=== PATIENT | female | born 1990 | race Caucasian/White ===

== ENCOUNTER → 2022-03-04 | Outpatient (CLI) | payer OTHER, BC, SELFPAY ==
[2022-03-04 14:11] LABS: hCG Titer Quant., Serum 78 mIU/mL (1-3)
== END | disposition home or self-care (01) ==
LOC: LAB 12:26
PROVIDERS: Visit Provider Obstetrics & Gynecology
DX: O36.80X0 Pregnancy with inconclusive fetal viability, not applicable or unspecified (principal)
CPT/HCPCS: 36415; 84702; 86850; 86900; 86901

== ENCOUNTER → 2022-03-06 | Outpatient (CLI) | payer OTHER, BC, SELFPAY ==
[2022-03-06 10:18] LABS: hCG Titer Quant., Serum 217 mIU/mL (1-3)
== END | disposition home or self-care (01) ==
LOC: LAB 09:12
PROVIDERS: Visit Provider Obstetrics & Gynecology
DX: O36.80X0 Pregnancy with inconclusive fetal viability, not applicable or unspecified (principal)
CPT/HCPCS: 36415; 84702

== ENCOUNTER → 2022-04-08 | Outpatient (CLI) | payer OTHER, BC, SELFPAY ==
[2022-04-07 15:16] LABS: Protein, Urine (Random) 14.8 mg/dL (<11.9); Protein:Creat Ratio 80 mg/g CRE (0-200)
[2022-04-07 15:19] LABS: Amphetamine Urine VISTA NEGATIVE (<1000 ng/mL); Barbiturate Urine VISTA NEGATIVE (< 200 ng/mL); Benzodiazepine Urine VISTA NEGATIVE (< 200 ng/mL); Cocaine Urine VISTA NEGATIVE (< 300 ng/mL); Ecstacy Urine VISTA NEGATIVE (< 500 ng/mL); Methadone Urine VISTA NEGATIVE (< 300 ng/mL); PCP Urine VISTA NEGATIVE (< 25 ng/mL); THC Urine VISTA NEGATIVE (< 50 ng/mL); Vista UDS pH Range 5
[2022-04-12 10:16] LABS: Chlamydia By Nucleic Acid AMP Negative (Negative)
[2022-04-12 10:32] LABS: Gonococcus By Nucleic Acid AMP Negative (Negative)
[2022-04-12 16:33] LABS: HPV APTIMA, High Risk Negative (Negative)
== END | disposition home or self-care (01) ==
LOC: LABSPEC 10:16
PROVIDERS: Visit Provider Obstetrics & Gynecology
DX: Z34.90 Encounter for supervision of normal pregnancy, unspecified, unspecified trimester (principal)
CPT/HCPCS: 80307; 82570; 84156; 87086; 87088; 87491; 87591; 87624; 88175; G0145

== ENCOUNTER → 2022-06-07 | Outpatient (CLI) | payer OTHER, BC, SELFPAY ==
[2022-06-07 17:40] LABS: Absolute Lymphocyte Count 1.93 X10^3/uL (0.83-4.51); Absolute Neutrophil Count 7.6 X10^3/uL (2.0-7.7); Basophil# 0.03 X10^3/uL; Basophil% 0.3 % (0-1); Eosinophil# 0.07 X10^3/uL; Eosinophils% 0.7 % (0-5); Hematocrit 36.4 % (37-47); Hemoglobin 12.6 g/dL (12.0-15.0); Lymphocyte # 1.93 X10^3/ul (0.83-4.51); Lymphocyte % 18.5 % (19-41); Mean Corp Hgb Conc 34.6 g/dL (32-36); Mean Corpuscular Hgb 30.6 pg (27.0-32.0); Mean Corpuscular Volume 88.3 fL (81-99); Monocyte# 0.74 X10^3/uL; Monocyte% 7.1 % (0-10); NRBC Flagged by Analyzer 0 % (0-5); Neutrophil # 7.64 X10^3/uL (2.7-7.7); Platelet Count 240 K/mm3 (150-450); RBC Distribution Width CV 13.4 % (11.6-14.6); RBC Distribution Width SD 43.7 fl (35.1-43.9); Red Blood Count 4.12 M/mm3 (4.2-5.4); White Blood Count 10.5 K/mm3 (4.4-11.0)
[2022-06-07 17:45] LABS: Protein, Urine (Random) < 6.0 mg/dL (<11.9)
[2022-06-07 18:33] LABS: ALB/GLOB Ratio 0.8 RATIO (0.9-2.4); AST(SGOT) 14 U/L (15-37); Alanine Aminotransfer ALT/SGPT 31 U/L (13-56); Albumin, Serum 3.2 g/dL (3.2-5.0); Alkaline Phosphatase 38 U/L (45-117); Anion Gap 10 (5-15); BUN 7 mg/dL (7-18); BUN/Creat Ratio 14.4 RATIO (10-20); Calcium,Total 9.2 mg/dL (8.5-10.1); Chloride 102 mmol/L (98-107); Creatinine, Serum 0.49 mg/dL (0.55-1.02); EST Glomerular Filtration Rate 159 mL/min (>60); Est Glom Filt Rate - Afr Amer 192 mL/min (>60); Glucose 79 mg/dL (74-106); Potassium 3.6 mmol/L (3.5-5.1); Protein, Total 7.2 g/dL (6.4-8.2); Sodium Level 137 mmol/L (136-145)
== END | disposition home or self-care (01) ==
LOC: LAB 17:04
PROVIDERS: Referring Provider Obstetrics & Gynecology; Visit Provider Obstetrics & Gynecology
DX: R10.11 Right upper quadrant pain (principal); R51.9 Headache, unspecified
CPT/HCPCS: 80053; 82570; 84156; 85025

== ENCOUNTER → 2022-08-19 | Outpatient (CLI) | payer OTHER, BC, SELFPAY ==
[2022-08-19 15:51] LABS: Absolute Neutrophil Count 8.5 X10^3/uL (2.0-7.7); Basophil# 0.03 X10^3/uL; Basophil% 0.3 % (0-1); Eosinophil# 0.04 X10^3/uL; Eosinophils% 0.4 % (0-5); Hematocrit 35.5 % (37-47); Hemoglobin 12.2 g/dL (12.0-15.0); Lymphocyte % 14.1 % (19-41); Mean Corp Hgb Conc 34.4 g/dL (32-36); Mean Corpuscular Hgb 30.4 pg (27.0-32.0); Mean Corpuscular Volume 88.5 fL (81-99); Mean Platelet Vol. 10.9 fl (6.2-12.0); Monocyte# 0.59 X10^3/uL; Monocyte% 5.5 % (0-10); NRBC Flagged by Analyzer 0 % (0-5); Neutrophil # 8.45 X10^3/uL (2.7-7.7); Neutrophil % 79.1 % (47-70); Platelet Count 237 K/mm3 (150-450); RBC Distribution Width CV 14.3 % (11.6-14.6); RBC Distribution Width SD 45.9 fl (35.1-43.9); Red Blood Count 4.01 M/mm3 (4.2-5.4); White Blood Count 10.7 K/mm3 (4.4-11.0)
[2022-08-19 16:43] LABS: Glucose Challenge Gest 1H 50g 132 mg/dL (70-140)
[2022-08-19 16:48] LABS: ALB/GLOB Ratio 0.8 RATIO (0.9-2.4); AST(SGOT) 11 U/L (15-37); Alanine Aminotransfer ALT/SGPT 20 U/L (13-56); Albumin, Serum 3.1 g/dL (3.2-5.0); Alkaline Phosphatase 46 U/L (45-117); Anion Gap 7 (5-15); BUN 8 mg/dL (7-18); BUN/Creat Ratio 16.9 RATIO (10-20); Chloride 103 mmol/L (98-107); Creatinine, Serum 0.47 mg/dL (0.55-1.02); EST Glomerular Filtration Rate 163 mL/min (>60); Est Glom Filt Rate - Afr Amer 197 mL/min (>60); Globulin 3.9 g/dL (2.2-4.2); Glucose 131 mg/dL (74-106); Potassium 3.4 mmol/L (3.5-5.1); Sodium Level 136 mmol/L (136-145)
[2022-08-19 17:03] LABS: HIV - WCH Non-Reactive (Nonreactive); Hepatitis B Surface Antigen Non-Reactive (Nonreactive); Hepatitis C Antibody Non-Reactive (Nonreactive); Rubella IgG Reactive (Nonreactive); Syphilis Antibodies Non-reactive
== END | disposition home or self-care (01) ==
LOC: LAB 15:15
PROVIDERS: Obstetrics & Gynecology; Visit Provider Obstetrics & Gynecology
DX: Z34.90 Encounter for supervision of normal pregnancy, unspecified, unspecified trimester (principal); Z87.59 Personal history of other complications of pregnancy, childbirth and the puerperium
CPT/HCPCS: 36415; 80053; 82950; 85025; 86703; 86762; 86780; 86803; 87340

== ENCOUNTER 2022-10-04 15:05 | Outpatient (CLI) | payer OTHER, BC, SELFPAY ==
[2022-10-04] VITALS (15 sets, daily range): BP systolic 132–171; BP diastolic 73–88; PULSE 80–101; TEMP 35.9–36.3; O2SAT 97–98; BMI 31.4
[2022-10-04 15:52] LABS: Hematocrit 34.7 % (37-47); Hemoglobin 12.1 g/dL (12.0-15.0); Mean Corp Hgb Conc 34.9 g/dL (32-36); Mean Corpuscular Hgb 31.3 pg (27.0-32.0); Mean Corpuscular Volume 89.9 fL (81-99); Mean Platelet Vol. 11.3 fl (6.2-12.0); Platelet Count 196 K/mm3 (150-450); RBC Distribution Width CV 14.2 % (11.6-14.6); RBC Distribution Width SD 46.2 fl (35.1-43.9); Red Blood Count 3.86 M/mm3 (4.2-5.4); White Blood Count 8.5 K/mm3 (4.4-11.0)
[2022-10-04 16:04] LABS: Protein, Urine (Random) 14.6 mg/dL (<11.9); Protein:Creat Ratio 136 mg/g CRE (0-200)
[2022-10-04 16:08] LABS: AST(SGOT) 10 U/L (15-37); Alanine Aminotransfer ALT/SGPT 15 U/L (13-56); Creatinine, Serum 0.45 mg/dL (0.55-1.02); EST Glomerular Filtration Rate 174 mL/min (>60); Est Glom Filt Rate - Afr Amer 211 mL/min (>60); Uric Acid 4.2 mg/dL (2.6-6.0)
--- NOTE | 2022-10-04 17:44 | HP.PCM.OB_ITS ---
HPI - General HPI Narrative JANETH BURGOS, is a 31 y/o @ 34 weeks 5 days who presents to L&D with headaches and elevated blood pressures of 140's-170/80's. PIH labs were collected along with a pro:cr ratio and were negative for pre-eclampsia. Pt states that this happened 10 years ago with her last and she was delivered at term ultimately. She states that she was admitted 3 times during her for high blood pressure but was never given blood pressure medication or magnesium and was not induced early. Maternal Data Information DENNIS Calculator Estimated Delivery Date Method Current WG Current Estimate 11/10/22 LMP (Uncertain) 34w 5d PFSH PFSH Medical History History of gestational hypertension Home Medications prenat.vits,david,[id number] 1 tab PO DAILY 03/23/22 [History Last Taken 10/03/22 21:00] calcium carbonate 200 mg calcium (500 mg) chewable tablet (Tums) 200 mg PO BID 06/28/22 [History Last Taken Unknown] acetaminophen 500 mg tablet 1,000 mg PO Q6H PRN Pain 10/04/22 [History Last Taken 10/04/22 12:00] diphenhydramine HCl 25 mg capsule (Benadryl) 25 mg PO PRN PRN allergies 10/04/22 [History Last Taken 10/03/22 21:00] famotidine 20 mg tablet (Pepcid) 20 mg PO DAILY 10/04/22 [History Last Taken 10/04/22 12:00] Allergy/AdvReac Type Severity Reaction Status Date / Time No Known Allergies Allergy Verified 10/04/22 16:15 Family History Father Diabetes Mother Multiple sclerosis Brother SVT (supraventricular tachycardia) Grandmother Hypertension Grandfather Hypertension Heart disease Social History adopted: No household members: spouse number of children: 2 current occupational status: employed current occupation: [employer] pets and animals: Yes (avoid litter box) pets and animals: cat(s), dog(s) and farm animals Smoking Status: Current every day smoker tobacco type: cigarettes how long ago did patient quit smokin cig per day, decreasing daily quit status: considering quitting alcohol intake: current alcohol intake frequency: a few times a week details: none while substance use type: does not use do you feel safe at home: Yes additional social history: Spouse: Vladimir History 2 Elective abortions Hx Para 1 Spontaneous abortions Hx # Term Pregnancies Ectopic pregnancies Hx # Pregnancies Multiple births # of living children 1 Past Pregnancies Del. Date Name GA/Weeks Outcome Route Bth Weight Infant Gen Labor [facility]est[facility] FOB Unknown 11/16/2011 [facility] live - full term 7# 8oz Female 9 hr epidural [place] Delivery Date: Last Updated by: Erna [place] QUALITY ASSURANCE CLERK, QUALITY ASSURANCE CLERK-C Hyperemesis, Pre E; Visit Details Expected Delivery Route/Plan Labor Preferences- CB/BF classes: [] labor support person: [] labor intervention preferences: [] pain management options preferred: [] cut cord/dad catch: [] : [] PP control planned: [] discussed possible routes of delivery and associated risks: [] special requests: [] Plans Covid status: declined Flu vaccine: decliined Tdap vaccine: declined Rhogam: na LARC form signed: [] movement and labor precautions reviewed. Problem list reviewed and updated with the most current plan of care details and appropriate orders placed. Relevant counseling for the gestational age provided. Continue routine care and follow up unless otherwise noted in visit notes/problem list details OB Flowsheet Initial Weight: Not Recorded Date -?-?-?-?-?-?-?-?-?-?-?-?- EGA Weight BP Urine Prot -?-?-?-?-?-?-?-?-?-?-?-?- Glucose FHR FuHt Pres Dilation -?-?-?-?-?-?-?-?-?-?-?-?- Effaced St Visit Note 04/07/22 -?-?-?-?-?-?-?-?-?-?-?--?- 9w 0d 193 lb 158/90 -?-?-?-?-?-?-?-?-?-?-?-?- 180 -?-?-?-?-?-?-?-?-?-?-?-?- SM- CRL 2.26cm c ons with LMP 05/03/22 -?-?-?-?-?-?-?-?-?-?-?-?- 12w 5d 192 lb 6 oz 133/87 Nega tive -?-?-?-?-?-?-?-?-?-?-?-?- Negative 155 -?-?-?-?-?-?-?-?-?-?-?-?- JV- no complaint s. pt declines genetic testnig. anatomy ultrasound ordered. 06/07/22 -?-?-?-?-?-?-?-?-?-?-?-?- 17w 5d 198 lb 8 oz 120/73 132/68 Negative -?-?-?-?-?-?-?-?-?-?-?-?- Negative 147 -?-?-?-?-?-?-?-?-?-?-?-?- ALBERTO- pt complains of RUQ pain and headaches. She states she is trying to sleep on her left side and take tylenol but the pain is persistent. she has a h/o Pre- e. ordering baseline labs with pro:cr will call with results. 06/28/22 -?-?-?-?-?-?-?-?-?-?-?-?- 20w 5d 203 lb 133/77 Negative -?-?-?-?-?-?-?-?-?-?-?-?- Negative 140 -?-?-?-?-?-?-?-?-?-?-?-?- SM- no vb lof go od fm no reuglar ctx 07/29/22 -?-?-?-?-?-?-?-?-?-?-?-?- 25w 1d 205 lb 8 oz 135/79 Nega tive -?-?-?-?-?-?-?-?-?-?-?-?- Negative 145 -?-?-?-?-?-?-?-?-?-?-?-?- ALBERTO- pt has type and screen in but no other new ob labs. she will do this at the gct visit. 08/19/22 -?-?-?-?-?-?-?-?-?-?-?-?- 28w 1d 203 lb 134/73 Negative -?-?-?-?-?-?-?-?-?-?-?-?- Negative 135 28 -?-?-?-?-?-?-?-?-?-?-?-?- SM- no vb lof go od fm no reuglar ctx 09/09/22 -?-?-?-?-?-?-?-?-?-?-?-?- 31w 1d 207 lb 136/88 Negative -?-?--?-?-?-?-?-?-?-?-?-?- Negative 150 31 -?-?-?-?-?-?-?-?-?-?-?-?- SM- no vb lof go od fm no reuglar ctx 09/28/22 -?-?-?-?-?-?-?-?-?-?-?-?- 33w 6d 210 lb 6 oz 132/84 Nega tive -?-?-?-?-?-?-?-?-?-?-?-?- Negative 154 34 0 -?-?-?-?-?-?-?-?-?-?-?-?- MH-Good FM. Has bad cough. Noted 4 episodes of pink with wiping after void. Exam with normal dc, cervix closed. Larc ROS Constitutional Constitutional: Denies change in weight, fatigue, fever(s), poor appetite or weakness Eyes Eyes: Denies blurry vision, change in vision, seeing flashes or spots in vision ENT HEENT: Denies dizziness, headache(s), loss taste/smell or sore throat Cardiovascular Cardiovascular: Denies chest pain, dizziness, dyspnea, irregular heart rhythm, leg edema, palpitations or rapid heart rate Respiratory/Chest Respiratory/Chest: Denies chest tightness, cough, dyspnea or breast pain Gastrointestinal Gastrointestinal: Denies abdominal pain, anorexia, constipation, cramping, diarrhea, hemorrhoids or weight changes Genitourinary Genitourinary: Denies dysuria, flank pain, genital lesions, genital pain, urinary frequency or urinary urgency Musculoskeletal Musculoskeletal: Denies back pain, difficulty walking, joint pain, limited range of motion, muscle cramps or numbness Integumentary Integumentary: Denies lesions or unusual bruising Neurologic Neurologic: Denies abnormal movements, abnormal speech, dizziness, numbness, seizure-like activity or syncope Psychiatric Psychiatric: Denies anxiety, behavioral changes, change in appetite, change in l ibido, cognitive impairment, confusion, depression, difficulty concentrating, hallucinations or suicidal thoughts Endocrine Endocrinology: Denies excessive sweating, polydipsia or polyuria Hematologic/Lymphatic Hematologic/Lymphatic: Denies easy bleeding, easy bruising or lymphadenopathy Allergic/Immunologic Allergic/Immunologic: Denies itchy eyes, lip swelling, seasonal rhinorrhea, rhinitis, throat swelling, tongue swelling, eczemia, wheezing or asthma Vital Signs Vital Signs Vital Signs: 10/04/22 15:28 10/04/22 15:28 10/04/22 15:28 Temperature Temperature Source Temporal Pulse Rate 81 Blood Pressure 145/79 H BP Systolic 145 BP Diastolic 79 Pulse Ox 10/04/22 15:28 10/04/22 15:28 10/04/22 15:43 Temperature 96.6 F L Temperature Source Pulse Rate Blood Pressure 148/88 H BP Systolic 148 BP Diastolic 88 Pulse Ox 98 10/04/22 15:43 10/04/22 15:58 10/04/22 15:58 Temperature Temperature Source Pulse Rate 91 88 Blood Pressure 151/83 H BP Systolic 151 BP Diastolic 83 Pulse Ox 10/04/22 16:14 10/04/22 16:14 10/04/22 16:28 Temperature Temperature Source Pulse Rate 95 Blood Pressure 167/85 H 144/74 H BP Systolic 167 144 BP Diastolic 85 74 Pulse Ox 10/04/22 16:28 10/04/22 16:44 10/04/22 16:44 Temperature Temperature Source Pulse Rate 85 101 H Blood Pressure 151/82 H BP Systolic 151 BP Diastolic 82 Pulse Ox 10/04/22 16:58 10/04/22 16:58 10/04/22 17:13 Temperature Temperature Source Pulse Rate 87 Blood Pressure 155/77 H 171/83 H BP Systolic 155 171 BP Diastolic 77 83 Pulse Ox 10/04/22 17:13 10/04/22 17:28 10/04/22 17:28 Temperature Temperature Source Pulse Rate 89 98 Blood Pressure 155/80 H BP Systolic 155 BP Diastolic 80 Pulse Ox 10/04/22 17:43 10/04/22 17:43 Temperature Temperature Source Pulse Rate 81 Blood Pressure 165/80 H BP Systolic 165 BP Diastolic 80 Pulse Ox Weight Weight: 207 lb Body Mass Index (BMI) 31.4 Physical Exam Const alert, oriented x3, no apparent distress and healthy appearing General Appearance: cooperative; Negative for anxious HEENT normocephalic Face and Sinus: normal facial exam Eyes EOMs intact bilaterally and no scleral icterus General Eye: normal appearance of both eyes Neck full ROM and supple Lymph Lymphatic: no lymphadenopathy noted Chest Chest: abnormal inspection of the chest Resp normal respiratory effort Effort and Inspection: able to speak in complete sentences Cardio regular rate GI soft to palpation and non-tender Inspection: gravid Palpation: soft; Negative for tender Back/Spine no CVA tenderness Extremity normal to inspection, full ROM and no clubbing, cyanosis or edema General Extremity: Negative for calf tenderness or edema Skin Lesions: no lesions Rashes: no rashes Psych mental status grossly normal Labs Labs Labs: Blood Type A POSITIVE Antibody Screen NEGATIVE Hct 34.7 % (37-47) L Hgb 12.1 g/dL (12.0-15.0) Pap Smear Negative Syphilis Total Ab Non-reactive Rubella IgG Antibody Reactive (Nonreactive) Hep Bs Antigen Non-Reactive (Nonreactive) Chlamydia DNA (DILAN) Negative (Negative) Neisseria gonorrhoeae DNA (DILAN) Negative (Negative) HIV 1&2 Antibody Non-Reactive (Nonreactive) Glucose 1 Hr 50 gm 132 mg/dL (70-140) Assessment & Plan (1) History of gestational hypertension: COMMENT: with first , baseline CMP and urine prot/creat. Per previous records 2012 delivery-early acute chorionitis (2) Tobacco use: COMMENT: quit (3) Nausea/vomiting in : COMMENT: manpreet (4) : QUALIFIERS: Weeks of gestation: 31 weeks Qualified Code(s): Z3A.31 - 31 weeks gestation of COMMENT: nl anatomy,discussed genetic and carrier screen (5) Supervision of other normal : COMMENT: DENNIS:11/10/22 boy PC:Lakisha. Sp:Vladimir (Rozina). 1st together. (6) Hypertension affecting in third trimester: PLAN: Plan plan to admit for observation collect 24 hour urine, start celestone 12.5 mg for lung maturity, start labetlol 200 mg bid (pt may have some aspect of chronic htn based on bp at start of the ) continuous monitoring growth scan in AM tylenol for headache modified bed rest with bathroom privileges rpt labs in am. Charges/Coding Multi Select Codes Visit Charges Visit Charges: 77653 Init Hosp L3
[2022-10-04] MEDS: Labetalol 200 MG Tablet PO (18:29)
[2022-10-04] MEDS: 0.9 % NaCl (Sterile) Posiflush 10 mL IV (18:30)
[2022-10-04] MEDS: Mag Hydrox/Al Hydrox/Simeth 30 ML UDC PO ×2 (19:31→23:09)
[2022-10-04] MEDS: Betamethasone/Betamethasone 30 MG/5 ML Vial 12 MG IM (19:31)
[2022-10-04] MEDS: Acetaminophen 325 MG Tablet 650 MG PO (23:09)
[2022-10-05] VITALS (11 sets, daily range): BP systolic 116–147; BP diastolic 59–83; PULSE 86–118; TEMP 36.3–36.6
[2022-10-05] MEDS: Mag Hydrox/Al Hydrox/Simeth 30 ML UDC PO ×4 (03:07→17:42)
[2022-10-05] MEDS: Ondansetron 4 MG/2 ML Vial IV ×2 (03:37→12:42)
[2022-10-05] MEDS: 0.9% Saline Lock 10 ML Syringe IV (03:37)
[2022-10-05 05:08] LABS: Absolute Lymphocyte Count 0.79 X10^3/uL (0.83-4.51); Absolute Neutrophil Count 8.9 X10^3/uL (2.0-7.7); Basophil# 0.01 X10^3/uL; Basophil% 0.1 % (0-1); Hematocrit 33.3 % (37-47); Hemoglobin 11.3 g/dL (12.0-15.0); Lymphocyte # 0.79 X10^3/ul (0.83-4.51); Lymphocyte % 8.1 % (19-41); Mean Corp Hgb Conc 33.9 g/dL (32-36); Mean Corpuscular Hgb 30.8 pg (27.0-32.0); Mean Corpuscular Volume 90.7 fL (81-99); Mean Platelet Vol. 11.6 fl (6.2-12.0); Monocyte# 0.11 X10^3/uL; Monocyte% 1.1 % (0-10); NRBC Flagged by Analyzer 0 % (0-5); Neutrophil # 8.85 X10^3/uL (2.7-7.7); Neutrophil % 90.2 % (47-70); Platelet Count 188 K/mm3 (150-450); RBC Distribution Width CV 14.4 % (11.6-14.6); RBC Distribution Width SD 47.2 fl (35.1-43.9); Red Blood Count 3.67 M/mm3 (4.2-5.4); White Blood Count 9.8 K/mm3 (4.4-11.0)
[2022-10-05 05:41] LABS: ALB/GLOB Ratio 0.8 RATIO (0.9-2.4); AST(SGOT) 9 U/L (15-37); Alanine Aminotransfer ALT/SGPT 15 U/L (13-56); Alkaline Phosphatase 53 U/L (45-117); Anion Gap 9 (5-15); BUN 5 mg/dL (7-18); BUN/Creat Ratio 11.4 RATIO (10-20); Calcium,Total 8.3 mg/dL (8.5-10.1); Chloride 103 mmol/L (98-107); Creatinine, Serum 0.44 mg/dL (0.55-1.02); EST Glomerular Filtration Rate 178 mL/min (>60); Est Glom Filt Rate - Afr Amer 215 mL/min (>60); Estimated Creatinine Clearance 188.59 ml/min; Globulin 3.8 g/dL (2.2-4.2); Glucose 127 mg/dL (74-106); Potassium 3.6 mmol/L (3.5-5.1); Protein, Total 6.8 g/dL (6.4-8.2); Sodium Level 136 mmol/L (136-145); Uric Acid 4.6 mg/dL (2.6-6.0)
--- NOTE | 2022-10-05 07:00 | US_ITS ---
STUDY: SECOND AND THIRD TRIMESTER OBSTETRICAL ULTRASOUND - LIMITED REASON FOR EXAM: Female, 31 years old hypertension in LMP: 02/03/2022. PRIOR ULTRASOUND: None. TECHNIQUE: Transabdominal TECHNICAL QUALITY: Adequate. FINDINGS: There is a single intrauterine fetus. The fetus is in a cephalic presentation. There is demonstrated cardiac activity with a heart rate of 142 bpm. There is a normal amniotic fluid volume. The largest amniotic fluid pocket measures 3.4 cm x 5.3 cm. The amniotic fluid index (LENCHO) is 11.4 cm. The placenta is fundal and posterior in location. There are Grade 1 placental changes. The cervical length was not measured due to limited filling of the urinary bladder. BIOMETRY: BPD: 8.77 cm: 35 weeks, 3 days HC: 32.42 cm: 36 weeks, 5 days AC: 31.4 cm: 35 weeks, 2 days FL: 6.89 cm: 35 weeks, 3 days Age by LMP: 34 weeks, 6 days. DENNIS by LMP: 11/10/2022. age by current US: 35 weeks, 5 days. DENNIS by current US: 11/04/2022. Estimated weight: 2693 grams, +/- 404 grams, 65 percentile. US/OB Limited With Biometrics IMPRESSION: Single live intrauterine gestation with a mean gestational age of 35 weeks and 5 days. Electronically Signed: Sage Goodson MD at 11:04 EST ,
--- NOTE | 2022-10-05 08:16 | PN.OBGYN_ITS ---
Subjective Subjective Patient went to ultrasound early this am and is back now but report is pending. She states that the phenergan this am helped her nausea and helped her fall asleep. nursing report from over night: bp's were stable after one dose of labetalol. Headache was treated with tylenol and helped take the edge off. Patient denies headache as worse headache of life and no visual disturbances or RUQ pain. Collecting 24 hour urine that was started at 17:45, is status post one dose of celestone. She vomited while in ultrasound this am and report is pending. bp highest over night since labetalol 200 mg po x 1 was given was 140/72, lowest was 116/59. Her partner reports that she has had a lot of anxiety this Objective Data Objective Data Vital Signs: Vital Signs Temp Pulse BP Pulse Ox 97.8 F 97 134/81 H 97 10/05/22 04:51 10/05/22 04:51 10/05/22 04:51 10/04/22 19:37 Weight: 207 lb Body Mass Index (BMI) 31.4 Lab / Micro Data Result Diagrams: 10/05/22 04:55 10/05/22 04:55 Labs: Laboratory Results - last 24 hr 10/04/22 15:40: WBC 8.5, RBC 3.86 L, Hgb 12.1, Hct 34.7 L, MCV 89.9, MCH 31.3, MCHC 34.9, RDW Std Deviation 46.2 H, RDW Coeff of Mayela 14.2, Plt Count 196, MPV 11.3 10/04/22 15:40: U Random Total Protein 14.6 H, Urine Creatinine 107.00, Protein/Creatinin Ratio 136 10/04/22 15:40: Creatinine 0.45 L, Estim Creat Clear Calc 184.40, Est GFR (MDRD) Af Amer 211, Est GFR (MDRD) Non-Af 174, Uric Acid 4.2, AST 10 L, ALT 15 10/05/22 04:55: WBC 9.8, RBC 3.67 L, Hgb 11.3 L, Hct 33.3 L, MCV 90.7, MCH 30.8, MCHC 33.9, RDW Std Deviation 47.2 H, RDW Coeff of Mayela 14.4, Plt Count 188, MPV 11.6, Immature Gran % (Auto) 0.500, Neut % (Auto) 90.2 H, Lymph % (Auto) 8.1 L, [place] % (Auto) 1.1, Eos % (Auto) 0.0, Baso % (Auto) 0.1, Absolute Neuts (auto) 8.9 H, Absolute Lymphs (auto) 0.79 L, Nucleated RBC % 0 10/05/22 04:55: Sodium 136, Potassium 3.6, Chloride 103, Carbon Dioxide 24.0, Anion Gap 9, BUN 5 L, Creatinine 0.44 L, Estim Creat Clear Calc 188.59, Est GFR (MDRD) Af Amer 215, Est GFR (MDRD) Non-Af 178, BUN/Creatinine Ratio 11.4, Gluco se 127 H, Uric Acid 4.6, Calcium 8.3 L, Total Bilirubin 0.50, AST 9 L, ALT 15, Alkaline Phosphatase 53, Total Protein 6.8, Albumin 3.0 L, Globulin 3.8, Albumin/Globulin Ratio 0.8 L 10/05/22 04:55: Blood Type A POSITIVE, Antibody Screen NEGATIVE ROS Constitutional Constitutional: Denies chills, fatigue, fever(s), poor appetite or weakness Eyes Eyes: Denies blurry vision, change in vision, seeing flashes or spots in vision ENT HEENT: Denies dizziness, loss taste/smell or sore throat Cardiovascular Cardiovascular: Denies chest pain, dizziness, dyspnea, irregular heart rhythm, palpitations or rapid heart rate Respiratory/Chest Respiratory/Chest: Denies chest tightness, cough, dyspnea or breast pain Gastrointestinal Gastrointestinal: Denies abdominal pain or constipation Genitourinary Genitourinary: Denies dysuria or flank pain Musculoskeletal Musculoskeletal: Denies difficulty walking, joint pain, limited range of motion or numbness Neurologic Neurologic: Denies abnormal movements, abnormal speech, dizziness, numbness, seizure-like activity or syncope Psychiatric Psychiatric: Denies anxiety, behavioral changes, change in appetite, confusion, depression or suicidal thoughts Physical Exam Const alert, oriented x3 and no apparent distress General Appearance: cooperative and comfortable Resp normal respiratory effort Cardio regular rate GI normal to inspection, nondistended, normoactive bowel sounds GI Narrative: NST: baseline 120, moderate variability, + accelerations, one spontaneous deceleration in the last 10 hours. no contractions, reactive nst. Palpation: soft Back/Spine no CVA tenderness and thoraco-lumbar ROM normal Extremity normal to inspection, no clubbing, cyanosis or edema, no calf tenderness and no pedal edema Psych mental status grossly normal, thought process normal, cooperative, affect normal, speech normal, activity/motor behavior normal, denies homicidal ideation and denies suicidal ideation Assessment & Plan (1) Hypertension affecting in third trimester: PLAN: phenergan PRN- bp seems to be low/normal when takes this. no severe range blood pressures since yesterday and no severe features. normal repeat serum testing. continue 24 hr urine collection hold labetalol this am to assess need for potential delivery severe features reviewed to include worst headache of life that is not relieved with tylenol, blind spots in vision, aura, or zig-zag lines in vision, bright flashes of light, or changes in laboratory values, and severe range blood pr essures >160 diastolic on 2 occasions 4 hrs apart or diastolic >110 (2) History of gestational hypertension: COMMENT: with first , baseline CMP and urine prot/creat. Per previous records 2012 delivery-early acute chorionitis (3) Tobacco use: COMMENT: quit (4) Nausea/vomiting in : COMMENT: manpreet (5) : QUALIFIERS: Weeks of gestation: 31 weeks Qualified Code(s): Z3A.31 - 31 weeks gestation of COMMENT: nl anatomy,discussed genetic and carrier screen (6) Supervision of other normal : COMMENT: DENNIS:11/10/22 boy PC:Lakisha. Sp:Vladimir (Rozina). 1st together. Charges/Coding Visit Charges Inpatient E&M: 29096 Subs Hosp L3
[2022-10-05] MEDS: proMETHazine 25 MG Tablet 12.5 MG PO ×2 (09:21→15:19)
[2022-10-05] MEDS: Famotidine 20 MG Tablet PO (17:01)
[2022-10-05] MEDS: Prenatal Vits Tablet 1 TABLET PO (17:47)
[2022-10-05 19:26] LABS: 24 Hour Urine Protein 291.6 mg/24HR (<150 MG/24HR); 24HR. UA Prot. Total Volume 2450 mL; Urine Protein (24 Hour) 11.9 mg/dL (<11.9)
[2022-10-05 19:28] LABS: Creat.Clear Total Volume 2450 mL; Creatinine Clearance 245 ml/min (100-200); Creatinine Serum Creat 0.4 mg/dL (0.6-1.0); Creatinine Urine 63.3 mg/dL (NO RANGE EST.); EST Glomerular Filtration Rate 178 mL/min (>60); Est Glom Filt Rate - Afr Amer 215 mL/min (>60)
[2022-10-05] MEDS: Betamethasone/Betamethasone 30 MG/5 ML Vial 12 MG IM (19:33)
== END 2022-10-05 20:05 | disposition home or self-care (01) ==
LOC: WPOUT 15:21 → WP 15:22
PROVIDERS: Visit Provider Obstetrics & Gynecology
DX: O16.3 Unspecified maternal hypertension, third trimester (principal); O21.2 Late vomiting of pregnancy; R51.9 Headache, unspecified; O99.333 Smoking (tobacco) complicating pregnancy, third trimester; F17.210 Nicotine dependence, cigarettes, uncomplicated; Z3A.34 34 weeks gestation of pregnancy
CPT/HCPCS: 96374; 96376; 36415; 59025; 59050; 76816; 80053; 82565; 82570; 82575; 84156; 84450; 84460; 84550; 85025; 85027; 86850; 86900; 86901; 87426; 96372; 99221; A4216; G0378; J0702; J2405

== ENCOUNTER 2022-10-07 16:05 | Outpatient (CLI) | payer OTHER, SELFPAY ==
[2022-10-07] VITALS (13 sets, daily range): BP systolic 135–153; BP diastolic 70–83; PULSE 67–80; TEMP 36.9; O2SAT 97–99; BMI 31.3
[2022-10-07] MEDS: 0.9% Saline Lock 10 ML Syringe IV ×2 (17:10→18:09)
[2022-10-07 17:22] LABS: Hematocrit 34.4 % (37-47); Hemoglobin 11.7 g/dL (12.0-15.0); Mean Corpuscular Volume 91.2 fL (81-99); Mean Platelet Vol. 11.4 fl (6.2-12.0); Platelet Count 234 K/mm3 (150-450); RBC Distribution Width CV 14.6 % (11.6-14.6); RBC Distribution Width SD 48.5 fl (35.1-43.9); Red Blood Count 3.77 M/mm3 (4.2-5.4); White Blood Count 10.5 K/mm3 (4.4-11.0)
[2022-10-07 17:37] LABS: AST(SGOT) 10 U/L (15-37); Alanine Aminotransfer ALT/SGPT 17 U/L (13-56); Creatinine, Serum 0.42 mg/dL (0.55-1.02); EST Glomerular Filtration Rate 189 mL/min (>60); Est Glom Filt Rate - Afr Amer 229 mL/min (>60); Estimated Creatinine Clearance 197.57 ml/min; Uric Acid 4.2 mg/dL (2.6-6.0)
[2022-10-07 17:38] LABS: Protein, Urine (Random) 28.6 mg/dL (<11.9); Protein:Creat Ratio 189 mg/g CRE (0-200)
[2022-10-07] MEDS: Ondansetron 4 MG/2 ML Vial IV (18:09)
[2022-10-07] MEDS: Dextrose 5%-Lactated Ringers 1,000 ML 999 ML IV (18:09)
--- NOTE | 2022-10-09 05:20 | OB.TRI.PN_ITS ---
Progress Notes Progress Note: Patient presents for triage evaluation secondary to dec urine output, elevated bp FHT: 130 Moderate variability reactive no decelerations category I tracing [place]: no regular Contractions Assessment and plan: elevated bp decreased urine output due to emesis and little po intake today, after IVFs and antiemetics, patient now urinating and tolerating po. repeat pree labs WNL Reactive NST, reassuring maternal and status patient discharged to home to follow-up in office this week. See problem list details for additional plan information. Laboratory Studies: Laboratory Tests 10/07/22 10/07/22 10/07/22 Range/Units 17:10 17:10 17:00 WBC 10.5 (4.4-11.0) K/mm3 RBC 3.77 L (4.2-5.4) M/mm3 Hgb 11.7 L (12.0-15.0) g/dL Hct 34.4 L (37-47) % MCV 91.2 (81-99) fL MCH 31.0 (27.0-32.0) pg MCHC 34.0 (32-36) g/dL RDW Std Deviation 48.5 H (35.1-43.9) fl RDW Coeff of Mayela 14.6 (11.6-14.6) % Plt Count 234 (150-450) K/mm3 MPV 11.4 (6.2-12.0) fl Creatinine 0.42 L (0.55-1.02) mg/dL Estim Creat Clear Calc 197.57 ml/min Est GFR (MDRD) Af Amer 229 (>60) mL/min Est GFR (MDRD) Non-Af 189 (>60) mL/min Uric Acid 4.2 (2.6-6.0) mg/dL AST 10 L (15-37) U/L ALT 17 (13-56) U/L U Random Total Protein 28.6 H (<11.9) mg/dL Urine Creatinine 151.00 (NO RANGE EST.) mg/dL Protein/Creatinin Ratio 189 (0-200) mg/g CRE Charges/Coding Procedures Urinary/Genital [id number]: [id number] non-stress test Interp Assessment & Plan (1) Hypertension affecting in third trimester: COMMENT: exp management, reviewed precautions, plan delivery 37 weeks. naseem n weekly labs and weekly NSTs.
== END 2022-10-07 19:50 | disposition home or self-care (01) ==
LOC: WPOUT 16:13 → WP 16:13
PROVIDERS: Referring Provider Obstetrics & Gynecology; Visit Provider Obstetrics & Gynecology
DX: O16.3 Unspecified maternal hypertension, third trimester (principal); O21.2 Late vomiting of pregnancy; Z3A.00 Weeks of gestation of pregnancy not specified
CPT/HCPCS: 96374; 96361; 36415; 59025; 59050; 82565; 82570; 84156; 84450; 84460; 84550; 85027; 99221; A4216; G0378; J2405

== ENCOUNTER 2022-10-10 21:05 | Outpatient (CLI) | payer OTHER, SELFPAY ==
[2022-10-10 21:16] VITALS: BMI 31.1
[2022-10-10 21:23] VITALS: PULSE 104; O2SAT 97
[2022-10-10 21:28] VITALS: BP 145/81; PULSE 95; O2SAT 96
[2022-10-10 21:43] VITALS: BP 133/77; PULSE 110
--- NOTE | 2022-10-10 21:45 | OB.TRI.HP_ITS ---
HPI - General HPI Narrative JANETH BURGOS, is a 31 F who presents for PEC rule out. Had elevated BP at home with headache. presented to L&D for pre-eclampsia rule out. had active FM, no lof/ctx Maternal Data Information DENNIS Calculator 2 Estimated Delivery Date Method Current WG Current Estimate 11/10/22 LMP (Uncertain) 35w 6d PFSH PFSH Medical History History of gestational hypertension Home Medications prenat.vits,david,uuc-ldbx-lovyz 1 tab PO DAILY 03/23/22 [History Last Taken 10/06/22 22:00] calcium carbonate 200 mg calcium (500 mg) chewable tablet (Tums) 200 mg PO BID heartburn 06/28/22 [History Last Taken 10/10/22] acetaminophen 500 mg tablet 1,000 mg PO Q6H PRN Pain 10/04/22 [History Last Taken 10/10/22 16:00] diphenhydramine HCl 25 mg capsule (Benadryl) 25 mg PO PRN PRN allergies 10/04/22 [History Last Taken 10/06/22 22:00] famotidine 20 mg tablet (Pepcid) 20 mg PO DAILY 10/04/22 [History Last Taken 10/09/22] Allergy/AdvReac Type Severity Reaction Status Date / Time No Known Allergies Allergy Verified 10/10/22 13:18 Family History Father Diabetes Mother Multiple sclerosis Brother SVT (supraventricular tachycardia) Grandmother Hypertension Grandfather Hypertension Heart disease Social History adopted: No household members: spouse number of children: 2 current occupational status: employed current occupation: [employer] pets and animals: Yes (avoid litter box) pets and animals: cat(s), dog(s) and farm animals Smoking Status: Current every day smoker tobacco type: cigarettes how long ago did patient quit smokin cig per day, decreasing daily quit status: considering quitting alcohol intake: current alcohol intake frequency: a few times a week details: none while substance use type: does not use do you feel safe at home: Yes additional social history: Spouse: Vladimir History 2 Elective abortions Hx Para 1 Spontaneous abortions Hx # Term Pregnancies Ectopic pregnancies Hx # Pregnancies Multiple births # of living children 1 Past Pregnancies Del. Date Name GA/Weeks Outcome Route Bth Weight Infant Gen Labor Lgth Anesthesia Del Locatn Provider FOB Unknown 11/16/2011 Lakisha live - full term 7# 8oz Female 9 hr epidural [place] Delivery Date: Last Updated by: Erna [place] AXLE TURNER, AXLE TURNER-C Hyperemesis, Pre E; Visit Details Expected Delivery Route/Plan Labor Preferences- CB/BF classes: [] labor support person: [] labor intervention preferences: [] pain management options preferred: [] cut cord/dad catch: [] : [] PP control planned: [] discussed possible routes of delivery and associated risks: [] special requests: [] Plans Covid status: declined Flu vaccine: decliined Tdap vaccine: declined Rhogam: na LARC form signed: [] movement and labor precautions reviewed. Problem list reviewed and updated with the most current plan of care details and appropriate orders placed. Relevant counseling for the gestational age provided. Continue routine care and follow up unless otherwise noted in visit notes/problem list details OB Flowsheet Initial Weight: Not Recorded Date -?-?-?-?-?-?-?-?-?-?-?-?- EGA Weight BP Urine Prot -?-?-?-?-?-?-?-?-?-?-?-?- Glucose FHR FuHt Pres Dilation -?-?-?-?-?-?-?-?-?-?-?-?- Effaced St Visit Note 04/07/22 -?-?-?-?-?-?-?-?-?-?-?-?- 9w 0d 193 lb 158/90 -?-?-?-?-?-?-?-?-?-?-?-?- 180 -?-?-?-?-?-?-?-?-?-?-?-?- SM- CRL 2.26cm c ons with LMP 05/03/22 -?-?-?-?-?-?-?-?-?-?-?-?- 12w 5d 192 lb 6 oz 133/87 Nega tive -?-?-?-?-?-?-?-?-?-?-?-?- Negative 155 -?-?-?-?-?-?-?-?-?-?-?-?- JV- no complaint s. pt declines genetic testnig. anatomy ultrasound ordered. 06/07/22 -?-?-?-?-?-?-?-?-?-?-?-?- 17w 5d 198 lb 8 oz 120/73 132/68 Negative -?-?-?-?-?-?-?-?-?-?-?-?- Negative 147 -?-?-?-?-?-?-?-?-?-?-?-?- JLoki- pt complains of RUQ pain and headaches. She states she is trying to sleep on her left side and take tylenol but the pain is persistent. she has a h/o Pre- e. ordering baseline labs with pro:cr will call with results. 06/28/22 -?-?-?-?-?-?-?-?-?-?-?-?- 20w 5d 203 lb 133/77 Negative -?-?-?-?-?-?-?-?-?-?-?-?- Negative 140 -?-?-?-?-?-?-?-?-?-?-?-?- SM- no vb lof go od fm no reuglar ctx 07/29/22 -?-?-?-?-?-?-?-?-?-?-?-?- 25w 1d 205 lb 8 oz 135/79 Nega tive -?-?-?-?-?-?-?-?-?-?-?-?- Negative 145 -?-?-?-?-?-?-?-?-?-?-?-?- PAPITO pt has type and screen in but no other new ob labs. she will do this at the gct visit. 08/19/22 -?-?-?-?-?-?-?-?-?-?-?-?- 28w 1d 203 lb 134/73 Negative -?-?-?-?-?-?-?-?-?-?-?-?- Negative 135 28 -?-?-?-?-?-?-?-?-?-?-?-?- SM- no vb lof go od fm no reuglar ctx 09/09/22 -?-?-?-?-?-?-?-?-?-?-?-?- 31w 1d 207 lb 136/88 Negative -?-?-?-?-?-?-?-?-?-?-?-?- Negative 150 31 -?-?-?-?-?-?-?-?-?-?-?-?- SM- no vb lof go od fm no reuglar ctx 09/28/22 -?-?-?-?-?-?-?-?-?-?-?-?- 33w 6d 210 lb 6 oz 132/84 Nega tive -?-?-?-?-?-?-?-?-?-?-?-?- Negative 154 34 0 -?-?-?-?-?-?-?-?-?-?-?-?- MH-Good FM. Has bad cough. Noted 4 episodes of pink with wiping after void. Exam with normal dc, cervix closed. Larc 10/07/22 -?-?-?-?-?-?-?-?-?-?-?-?- 35w 1d 206 lb 2 oz 157/79 Nega tive -?-?-?-?-?-?-?-?-?-?-?-?- Negative 155 35 -?-?-?-?-?-?-?-?-?-?-?-?- JV- no lof, vagi nal bleeding, dec fm. + fogging in the periphery of vision, + on off mild headaches, and states is only urinating once or twice a day. sending back to L&D for further monitoring. last 24 hr urine was 290 10/10/22 -?-?-?-?-?-?-?-?-?-?-?-?- 35w 4d 209 lb 137/91 Negative -?-?-?-?-?-?-?-?-?-?-?-?- Negative 150 -?-?-?-?-?-?-?-?-?-?-?-?- MH-NST only reac tive. Denies headache pressure like earache. No vision changes. Rev with SM:RTO 3 days. Home BP monitor. NST FHR Rate Baby A Baseline: 140 Variability:: Moderate Accelerations:: 15 x 15 Decelerations:: None NST Reactive:: Yes FHR Category:: Category I Uterine Activity:: none Assessment & Plan (1) Hypertension affecting in third trimester: COMMENT: exp management, reviewed precautions, plan delivery 37 weeks. plan weekly labs and weekly NSTs. (2) History of gestational hypertension: COMMENT: with first , baseline CMP and urine prot/creat. Per previous records 2012 delivery-early acute chorionitis (3) : QUALIFIERS: Weeks of gestation: 35 weeks Qualified Code(s): Z3A.35 - 35 weeks gestation of COMMENT: nl anatomy,discussed genetic and carrier screen (4) Supervision of other normal : COMMENT: DENNIS:11/10/22 boy PC:Lakisha. Sp:Vladimir (Rozina). 1st together. PLAN: Plan Patient presents for triage evaluation secondary to elevated BP at 35+4 FHT: Moderate variability reactive no decelerations category I tracing [place]: no Contractions Assessment and plan: Reactive NST, reassuring maternal and status patient discharged to home to follow-up in office. See problem list details for additional plan information. Charges/Coding Procedures Urinary/Genital 52xxx-59xxx: 50619-63 non-stress test Interp
[2022-10-10 22:01] VITALS: BP 137/83; PULSE 95
[2022-10-10 22:02] LABS: Color, Urine Yellow (Yellow); Glucose, Dipstick Normal (Normal); Hematocrit 35.6 % (37-47); Hemoglobin 12.2 g/dL (12.0-15.0); Ketone-Dipstick Negative (Negative); Leukocyte Esterase-Dipstick 500 /ul (Negative); Mean Corp Hgb Conc 34.3 g/dL (32-36); Mean Corpuscular Hgb 30.8 pg (27.0-32.0); Mean Corpuscular Volume 89.9 fL (81-99); Mean Platelet Vol. 11.4 fl (6.2-12.0); Nitrite-Dipstick Negative (Negative); Occult Blood-Urine 25 /ul (Negative); Platelet Count 222 K/mm3 (150-450); Protein-Dipstick 15 mg/dl (Negative); RBC Distribution Width CV 14.1 % (11.6-14.6); RBC Distribution Width SD 45.9 fl (35.1-43.9); Red Blood Count 3.96 M/mm3 (4.2-5.4); Urine Bilirubin Dipstick Negative (Negative); Urine Clarity Cloudy (Clear); Urine Urobilinogen Normal (Normal); White Blood Count 9.9 K/mm3 (4.4-11.0)
[2022-10-10 22:18] VITALS: BP 144/78; PULSE 94; TEMP 36.7
[2022-10-10 22:20] LABS: AST(SGOT) 6 U/L (15-37); Alanine Aminotransfer ALT/SGPT 15 U/L (13-56); Creatinine, Serum 0.66 mg/dL (0.55-1.02); EST Glomerular Filtration Rate 111 mL/min (>60); Est Glom Filt Rate - Afr Amer 134 mL/min (>60); Estimated Creatinine Clearance 125.73 ml/min; Uric Acid 4.8 mg/dL (2.6-6.0)
[2022-10-10 22:29] LABS: Protein, Urine (Random) 12.8 mg/dL (<11.9); Protein:Creat Ratio 131 mg/g CRE (0-200)
[2022-10-10] MEDS: Acetaminophen 500 MG Tablet 1000 MG PO (23:16)
== END 2022-10-10 23:28 | disposition home or self-care (01) ==
LOC: WPOUT 21:14 → WP 21:14
PROVIDERS: Visit Provider Registered Nurse
DX: O16.3 Unspecified maternal hypertension, third trimester (principal); O99.333 Smoking (tobacco) complicating pregnancy, third trimester; F17.210 Nicotine dependence, cigarettes, uncomplicated; Z3A.35 35 weeks gestation of pregnancy
CPT/HCPCS: 36415; 59025; 59050; 81002; 82565; 82570; 84156; 84450; 84460; 84550; 85027; 99221; G0378

== ENCOUNTER → 2022-10-13 | Outpatient (CLI) | payer OTHER, SELFPAY | END | disposition home or self-care (01) | LOC: LABSPEC 17:07 | PROVIDERS: Visit Provider Obstetrics & Gynecology | DX: Z34.90 Encounter for supervision of normal pregnancy, unspecified, unspecified trimester (principal) | CPT/HCPCS: 87077; 87081; 87186 ==

== ENCOUNTER 2022-10-14 18:25 | Outpatient (CLI) | payer OTHER, SELFPAY ==
[2022-10-14] VITALS (23 sets, daily range): BP systolic 134–148; BP diastolic 79–92; PULSE 100–131; TEMP 36.6; O2SAT 96–98; BMI 31.8
--- NOTE | 2022-10-14 20:24 | OB.TRI.HP_ITS ---
HPI - General General Date of Admission: 10/14/22 HPI Narrative JANETH BURGOS, is a 31 y/o @ 36 weeks 1 day who presents to L&D for feeling like her ears are blowing out. She denies headache but has had RUQ pain since 18 weeks that is unchanged. She has known gestational hypertension and has an induction set up for next week at 37 weeks. Maternal Data Information DENNIS Calculator Estimated Delivery Date Method Current WG Current Estimate 11/10/22 LMP (Uncertain) 36w 1d PFSH PFS Medical History History of gestational hypertension Home Medications prenat.vits,david,yml-vbfn-mbszx 1 tab PO DAILY 03/23/22 [History Last Taken 10/06/22 22:00] calcium carbonate 200 mg calcium (500 mg) chewable tablet (Tums) 200 mg PO PRN PRN Indigestion 06/28/22 [History Last Taken 10/10/22] acetaminophen 500 mg tablet 1,000 mg PO Q6H PRN Pain 10/04/22 [History Last Taken 10/10/22 16:00] diphenhydramine HCl 25 mg capsule (Benadryl) 25 mg PO PRN PRN allergies 10/04/22 [History Last Taken 10/06/22 22:00] famotidine 20 mg tablet (Pepcid) 20 mg PO DAILY 10/04/22 [History Last Taken 10/09/22] diphenhydramine HCl 50 mg/30 mL oral liquid 50 mg PO QHS PRN Insomnia 10/14/22 [History Last Taken Unknown] Allergy/AdvReac Type Severity Reaction Status Date / Time No Known Allergies Allergy Verified 10/13/22 15:30 Family History Father Diabetes Mother Multiple sclerosis Brother SVT (supraventricular tachycardia) Grandmother Hypertension Grandfather Hypertension Heart disease Social History adopted: No household members: spouse number of children: 2 current occupational status: employed current occupation: [employer] pets and animals: Yes (avoid litter box) pets and animals: cat(s), dog(s) and farm animals Smoking Status: Current every day smoker tobacco type: cigarettes how long ago did patient quit smokin cig per day, decreasing daily quit status: considering quitting alcohol intake: current alcohol intake frequency: a few times a week details: none while substance use type: does not use do you feel safe at home: Yes additional social history: Spouse: Vladimir History 2 Elective abortions Hx Para 1 Spontaneous abortions Hx # Term Pregnancies Ectopic pregnancies Hx # Pregnancies Multiple births # of living children 1 Past Pregnancies Del. Date Name GA/Weeks Outcome Route Bth Weight Gen Labor Lgth Anesthesia Del Locatn Provider FOB Unknown 11/16/2011 Londynn live - full term 7# 8oz Female 9 hr epidural [place] Delivery Date: Last Updated by: Erna [place] ROTARY SHEAR CUTTER, ROTARY SHEAR CUTTER-C Hyperemesis, Pre E; Visit Details Expected Delivery Route/Plan Labor Preferences- CB/BF classes: [] labor support person: [] labor intervention preferences: [] pain management options preferred: [] cut cord/dad catch: [] : [] PP control planned: [] discussed possible routes of delivery and associated risks: [] special requests: [] Plans Covid status: declined Flu vaccine: decliined Tdap vaccine: declined Rhogam: na LARC form signed: [] movement and labor precautions reviewed. Problem list reviewed and updated with the most current plan of care details and appropriate orders placed. Relevant counseling for the gestational age provided. Continue routine care and follow up unless otherwise noted in visit notes/problem list details OB Flowsheet Initial Weight: Not Recorded Date -?-?-?-?-?-?-?-?-?-?-?-?- EGA Weight BP Urine Prot -?-?-?-?-?-?-?-?-?-?-?-?- Glucose FHR FuHt Pres Dilation -?-?-?-?-?-?-?-?-?-?-?-?- Effaced St Visit Note 04/07/22 -?-?-?-?-?-?-?-?-?-?-?-?- 9w 0d 193 lb 158/90 -?-?-?-?-?-?-?-?-?-?-?-?- 180 -?-?-?-?-?-?-?-?-?-?-?-?- SM- CRL 2.26cm c ons with LMP 05/03/22 -?-?-?-?-?-?-?-?-?-?-?-?- 12w 5d 192 lb 6 oz 133/87 Nega tive -?-?-?-?-?-?-?-?-?-?-?-?- Negative 155 -?-?-?-?-?-?-?-?-?-?-?-?- JV- no complaint s. pt declines genetic testnig. anatomy ultrasound ordered. 06/07/22 -?-?-?-?-?-?-?-?-?-?-?-?- 17w 5d 198 lb 8 oz 120/73 132/68 Negative -?-?-?-?-?-?-?-?-?-?-?-?- Negative 147 -?-?-?-?-?-?-?-?-?-?-?-?- JV- pt complains of RUQ pain and headaches. She states she is trying to sleep on her left side and take tylenol but the pain is persistent. she has a h/o Pre- e. ordering baseline labs with pro:cr will call with results. 06/28/22 -?-?-?-?-?-?-?-?-?-?-?-?- 20w 5d 203 lb 133/77 Negative -?-?-?-?-?-?-?-?--?-?-?-?- Negative 140 -?-?-?-?-?-?-?-?-?-?-?-?- SM- no vb lof go od fm no reuglar ctx 07/29/22 -?-?-?-?-?-?-?-?-?-?-?-?- 25w 1d 205 lb 8 oz 135/79 Nega tive -?-?-?-?-?-?-?-?-?-?-?-?- Negative 145 -?-?-?-?-?-?-?-?-?-?-?-?- JV- pt has type and screen in but no other new ob labs. she will do this at the gct visit. 08/19/22 -?-?-?-?-?-?-?-?-?-?-?-?- 28w 1d 203 lb 134/73 Negative -?-?-?-?-?-?-?-?-?-?-?-?- Negative 135 28 -?-?-?-?-?-?-?-?-?-?-?-?- SM- no vb lof go od fm no reuglar ctx 09/09/22 -?-?-?-?-?-?-?-?-?-?-?-?- 31w 1d 207 lb 136/88 Negative -?-?-?-?-?-?-?-?-?-?-?-?- Negative 150 31 -?-?-?-?-?-?-?-?-?-?-?-?- SM- no vb lof go od fm no reuglar ctx 09/28/22 -?-?-?-?-?-?-?-?-?-?-?-?- 33w 6d 210 lb 6 oz 132/84 Nega tive -?-?-?-?-?-?-?-?-?-?-?-?- Negative 154 34 0 -?-?-?-?-?-?-?-?-?-?-?-?- MH-Good FM. Has bad cough. Noted 4 episodes of pink with wiping after void. Exam with normal dc, cervix closed. Larc 10/07/22 -?-?-?-?-?-?-?-?-?-?-?-?- 35w 1d 206 lb 2 oz 157/79 Nega tive -?-?-?-?-?-?-?-?-?-?-?-?- Negative 155 35 -?-?-?-?-?-?-?-?-?-?-?-?- JV- no lof, vagi nal bleeding, dec fm. + fogging in the periphery of vision, + on off mild headaches, and states is only urinating once or twice a day. sending back to L&D for further monitoring. last 24 hr urine was 290 10/10/22 -?-?-?-?-?-?-?-?-?-?-?-?- 35w 4d 209 lb 137/91 Negative -?-?-?-?-?-?-?-?--?-?-?-?- Negative 150 -?-?-?-?-?-?-?-?-?-?-?-?- MH-NST only reac tive. Denies headache pressure like earache. No vision changes. Rev with SM:RTO 3 days. Home BP monitor. 10/13/22 -?-?-?-?-?-?-?-?-?-?-?-?- 36w 0d 204 lb 8 oz 130/85 Nega tive -?-?-?-?-?-?-?-?-?-?-?-?- Negative 150 1 -?-?-?-?-?-?--?-?-?-?-?-?- 20 -3 JV- reacti ve NST. 37 week IOL set up for gestational htn, ROS Constitutional Constitutional: Reports systems reviewed and no addt'l complaints, except as documented Gastrointestinal Gastrointestinal: Denies bloating, constipation, cramping, diarrhea, nausea or vomiting Genitourinary Genitourinary: Reports other Details: Denies vaginal odor, vaginal bleeding, or vaginal discharge ; Denies difficulty urinating or flank pain Physical Exam HEENT normocephalic Resp normal respiratory effort and normal air movement no CVA tenderness Extremity normal to inspection General Extremity: edema bilateral (trace ) NST FHR Rate Baby A Baseline: 140 Variability:: Moderate Accelerations:: 15 x 15 Decelerations:: None NST Reactive:: Yes FHR Category:: Category I Assessment & Plan (1) Hypertension affecting in third trimester: COMMENT: exp management, reviewed precautions, plan delivery 37 weeks. plan weekly labs and weekly NSTs. (2) History of gestational hypertension: COMMENT: with first , baseline CMP and urine prot/creat. Per previous records 2012 delivery-early acute chorionitis (3) Tobacco use: COMMENT: quit (4) Nausea/vomiting in : COMMENT: manpreet (5) : QUALIFIERS: Weeks of gestation: 36 weeks Qualified Code(s): Z3A.36 - 36 weeks gestation of COMMENT: nl anatomy,discussed genetic and carrier screen (6) Supervision of other normal : COMMENT: DENNIS:11/10/22 boy PC:Lakisha. Sp:Vladimir (Rozina). 1st together. PLAN: Plan blood pressures in her typical range of 130's- 140's/ 70's-80's. no change since last exam 2 days ago. dc to home after monitoring here and return next week for induction. Charges/Coding Multi Select Codes Visit Charges Office Visit/Consults: 05893 OV L3 Est Urinary/Genital Urinary/Genital CPT Codes: 51530-39 non-stress test Interp
== END 2022-10-14 20:30 | disposition home or self-care (01) ==
LOC: WPOUT 18:39 → WP 18:39
PROVIDERS: Visit Provider Obstetrics & Gynecology
DX: O13.3 Gestational [pregnancy-induced] hypertension without significant proteinuria, third trimester (principal); O99.333 Smoking (tobacco) complicating pregnancy, third trimester; R11.2 Nausea with vomiting, unspecified; R10.11 Right upper quadrant pain; F17.210 Nicotine dependence, cigarettes, uncomplicated; Z3A.36 36 weeks gestation of pregnancy
CPT/HCPCS: 59025; 59050; 99221; G0378

== ENCOUNTER 2022-10-18 09:50 | Outpatient (CLI) | payer OTHER, SELFPAY ==
--- NOTE | 2022-10-18 09:57 | US_ITS ---
STUDY: OBSTETRICAL ULTRASOUND - BIOPHYSICAL PROFILE REASON FOR EXAM: Female, 31 years old Variables in office -- Sent to OB for extended monitoring and BPP LMP: 02/03/2022. PRIOR ULTRASOUND: Comparison is made with prior study dated 04/04/2023. TECHNIQUE: Transabdominal TECHNICAL QUALITY: Adequate. FINDINGS: There is a single intrauterine fetus. The fetus is in a cephalic presentation. There is demonstrated cardiac activity with a heart rate of 143 bpm. There is a normal amniotic fluid volume. The largest amniotic fluid pocket measures 4.06 cm. The amniotic fluid index (LENCHO) is 10.98 cm. The placenta is fundal in location. There are Grade 1 placental changes. Age by LMP: 36 weeks, 5 days. DENNIS by LMP: 11/10/2022. age by prior US: 37 weeks, 4 days. DENNIS by prior US: 11/04/2022. BIOPHYSICAL PROFILE: Breathing Movements (FBM): 2 Gross Body Movements (GBM): 2 Tone (FT): 2 Amniotic Fluid Volume (AFV): 2 TOTAL SCORE: 8 / 8 US/Biophysical Prof W/O Non Stres IMPRESSION: Normal biophysical profile of 8/8. Electronically Signed: Sage Goodson MD at 12:32 EST ,
[2022-10-18 10:10] VITALS: BP 142/86; PULSE 105; TEMP 36.7
[2022-10-18 10:40] VITALS: BP 132/74; PULSE 103
[2022-10-18 11:10] VITALS: BP 127/74; PULSE 97
[2022-10-18 12:56] VITALS: BP 138/88; PULSE 114
--- NOTE | 2022-10-19 13:43 | PCM.HP.OB ---
HPI - General General Date of Admission: 10/18/22 HPI Narrative JANETH BURGOS, is a 31 F who presents to L&D for prolonged monitoring due to small variable decels seen in office today. Maternal Data Information DENNIS Calculator Estimated Delivery Date Method Current WG Current Estimate 11/10/22 LMP (Uncertain) 37w 1d [facility] Medical History (Updated 10/21/22 @ 10:39 by Martita Mckeon CNM) History of gestational hypertension Positive GBS test Pre-eclampsia Home Medications prenat.vits,david,rcp-ehfy-qxrbv 1 tab PO DAILY 03/23/22 [History Last Taken 10/19/22 22:30] calcium carbonate 200 mg calcium (500 mg) chewable tablet (Tums) 200 mg PO PRN PRN Indigestion 06/28/22 [History Last Taken 10/20/22 17:00] acetaminophen 500 mg tablet 1,000 mg PO Q6H PRN Pain 10/04/22 [History Last Taken 10/20/22 10:00] diphenhydramine HCl 25 mg capsule (Benadryl) 25 mg PO PRN PRN allergies 10/04/22 [History Last Taken 10/06/22 22:00] famotidine 20 mg tablet (Pepcid) 20 mg PO DAILY indigestion 10/04/22 [History Last Taken 10/19/22 22:30] diphenhydramine HCl 50 mg/30 mL oral liquid 50 mg PO QHS PRN Insomnia 10/14/22 [History Last Taken Unknown] Allergy/AdvReac Type Severity Reaction Status Date / Time No Known Allergies Allergy Verified 10/20/22 17:52 Family History Father Diabetes Mother Multiple sclerosis Brother SVT (supraventricular tachycardia) Grandmother Hypertension Grandfather Hypertension Heart disease Surgical History History of surgery Social History adopted: No household members: spouse number of children: 2 current occupational status: employed current occupation: [employer] pets and animals: Yes (avoid litter box) pets and animals: cat(s), dog(s) and farm animals Smoking Status: Former smoker how long ago did patient quit smokin cig per day, decreasing daily quit status: considering quitting alcohol intake: current alcohol intake frequency: a few times a week details: none while substance use type: does not use do you feel safe at home: Yes additional social history: Spouse: Vladimir History 2 Elective abortions Hx Para 1 Spontaneous abortions Hx # Term Pregnancies Ectopic pregnancies Hx # Pregnancies Multiple births # of living children 1 Past Pregnancies Del. Date Name GA/Weeks Outcome Route Bth Weight Infant Gen Labor Lgth Anesthesia Del Locatn Provider FOB Unknown 11/16/2011 Londynn live - full term 7# 8oz Female 9 hr epidural [place] Delivery Date: Last Updated by: Erna [place] DIETITIAN CHIEF, DIETITIAN CHIEF-C Hyperemesis, Pre E; Visit Details Expected Delivery Route/Plan Labor Preferences- CB/BF classes: [] labor support person: [] labor intervention preferences: [] pain management options preferred: [] cut cord/dad catch: [] : [] PP control planned: [] discussed possible routes of delivery and associated risks: [] special requests: [] Plans Covid status: declined Flu vaccine: decliined Tdap vaccine: declined Rhogam: na LARC form signed: [] movement and labor precautions reviewed. Problem list reviewed and updated with the most current plan of care details and appropriate orders placed. Relevant counseling for the gestational age provided. Continue routine care and follow up unless otherwise noted in visit notes/problem list details OB Flowsheet Initial Weight: Not Recorded Date <del>?</del> EGA Weight BP Urine Prot <del>?</del> Glucose FHR FuHt Pres Dilation <del>?</del> Effaced St Visit Note 04/07/22 <del>?</del> 9w 0d 193 lb 158/90 <del>?</del> 180 <del>?</del> SM- CRL 2.26cm cons with LMP 05/03/22 <del>?</del> 12w 5d 192 lb 6 oz 133/87 Negative <del>?</del> Negative 155 <del>?</del> JV- no complaints. pt declines genetic testnig. anatomy ultrasound ordered. 06/07/22 <del>?</del> 17w 5d 198 lb 8 oz 120/73 132/68 Negative <del>?</del> Negative 147 <del>?</del> JV- pt complains of RUQ pain and headaches. She states she is trying to sleep on her left side and take tylenol but the pain is persistent. she has a h/o Pre-e. ordering baseline labs with pro:cr will call with results. 06/28/22 <del>?</del> 20w 5d 203 lb 133/77 Negative <del>?</del> Negative 140 <del>?</del> SM- no vb lof good fm no reuglar ctx 07/29/22 <del>?</del> 25w 1d 205 lb 8 oz 135/79 Negative <del>?</del> Negative 145 <del>?</del> JV- pt has type and screen in but no other new ob labs. she will do this at the gct visit. 08/19/22 <del>?</del> 28w 1d 203 lb 134/73 Negative <del>?</del> Negative 135 28 <del>?</del> SM- no vb lof good fm no reuglar ctx 09/09/22 <del>?</del> 31w 1d 207 lb 136/88 Negative <del>?</del> Negative 150 31 <del>?</del> SM- no vb lof good fm no reuglar ctx 09/28/22 <del>?</del> 33w 6d 210 lb 6 oz 132/84 Negative <del>?</del> Negative 154 34 0 <del>?</del> MH-Good FM. Has bad cough. Noted 4 episodes of pink with wiping after void. Exam with normal dc, cervix closed. Larc 10/07/22 <del>?</del> 35w 1d 206 lb 2 oz 157/79 Negative <del>?</del> Negative 155 35 <del>?</del> JV- no lof, vaginal bleeding, dec fm. + fogging in the periphery of vision, + on off mild headaches, and states is only urinating once or twice a day. sending back to L&D for further monitoring. last 24 hr urine was 290 10/10/22 <del>?</del> 35w 4d 209 lb 137/91 Negative <del>?</del> Negative 150 <del>?</del> MH-NST only reactive. Denies headache pressure like earache. No vision changes. Rev with SM:RTO 3 days. Home BP monitor. 10/13/22 <del>?</del> 36w 0d 204 lb 8 oz 130/85 Negative <del>?</del> Negative 150 1 <del>?</del> 20 -3 JV- reactive NST. 37 week IOL set up for gestational htn, 10/18/22 <del>?</del> 36w 5d 205 lb 2 oz 137/83 Negative <del>?</del> Negative 150 <del>?</del> MH-nonreassuring NST. Decel X 3 to 120 with movement. To US for BPP, LENCHO. Reviewed with NST FHR Rate Baby A Baseline: 140 Variability:: Moderate Accelerations:: 15 x 15 Decelerations:: None NST Reactive:: Yes FHR Category:: Category I Labs Labs Labs: Blood Type A POSITIVE Antibody Screen NEGATIVE Hct 37.2 % (37-47) Hgb 12.7 g/dL (12.0-15.0) Pap Smear Negative Obstetrics US Syphilis Total Ab Non-reactive Rubella IgG Antibody Reactive (Nonreactive) Hep Bs Antigen Non-Reactive (Nonreactive) Chlamydia DNA (DILAN) Negative (Negative) Neisseria gonorrhoeae DNA (DILAN) Negative (Negative) HIV 1&2 Antibody Non-Reactive (Nonreactive) Glucose 1 Hr 50 gm 132 mg/dL (70-140) Rhogam given: No Assessment & Plan (1) Supervision of other normal : COMMENT: DENNIS:11/10/22 boy PC:Lakisha. Sp:Vladimir (Rozina). 1st together. (2) : QUALIFIERS: Weeks of gestation: 36 weeks Qualified Code(s): Z3A.36 - 36 weeks gestation of COMMENT: nl anatomy,discussed genetic and carrier screen (3) Nausea/vomiting in : COMMENT: manpreet (4) Tobacco use: COMMENT: quit (5) History of gestational hypertension: COMMENT: with first , baseline CMP and urine prot/creat. Per previous records 2012 delivery-early acute chorionitis (6) Hypertension affecting in third trimester: COMMENT: exp management, reviewed precautions, plan delivery 37 weeks. plan weekly labs and weekly NSTs. (7) Positive GBS test: PLAN: Plan reassuring tracing for 132 minutes. ok to dc to home and return for IOL later this week. Charges/Coding Multi Select Codes Urinary/Genital Urinary/Genital CPT Codes: 70605-14 non-stress test Interp
--- NOTE | 2022-10-21 13:43 | HP.PCM.OB_ITS ---
HPI - General General Date of Admission: 10/18/22 HPI Narrative JANETH BURGOS, is a 31 F who presents to L&D for prolonged monitoring due to small variable decels seen in office today. Maternal Data Information DENNIS Calculator Estimated Delivery Date Method Current WG Current Estimate 11/10/22 LMP (Uncertain) 37w 1d [facility] Medical History (Updated 10/21/22 @ 10:39 by Martita Mckeon CNM) History of gestational hypertension Positive GBS test Pre-eclampsia Home Medications prenat.vits,david,dus-cykd-idnix 1 tab PO DAILY 03/23/22 [History Last Taken 10/19/22 22:30] calcium carbonate 200 mg calcium (500 mg) chewable tablet (Tums) 200 mg PO PRN PRN Indigestion 06/28/22 [History Last Taken 10/20/22 17:00] acetaminophen 500 mg tablet 1,000 mg PO Q6H PRN Pain 10/04/22 [History Last Taken 10/20/22 10:00] diphenhydramine HCl 25 mg capsule (Benadryl) 25 mg PO PRN PRN allergies 10/04/22 [History Last Taken 10/06/22 22:00] famotidine 20 mg tablet (Pepcid) 20 mg PO DAILY indigestion 10/04/22 [History Last Taken 10/19/22 22:30] diphenhydramine HCl 50 mg/30 mL oral liquid 50 mg PO QHS PRN Insomnia 10/14/22 [History Last Taken Unknown] Allergy/AdvReac Type Severity Reaction Status Date / Time No Known Allergies Allergy Verified 10/20/22 17:52 Family History Father Diabetes Mother Multiple sclerosis Brother SVT (supraventricular tachycardia) Grandmother Hypertension Grandfather Hypertension Heart disease Surgical History History of surgery Social History adopted: No household members: spouse number of children: 2 current occupational status: employed current occupation: [email or web address] pets and animals: Yes (avoid litter box) pets and animals: cat(s), dog(s) and farm animals Smoking Status: Former smoker how long ago did patient quit smokin cig per day, decreasing daily quit status: considering quitting alcohol intake: current alcohol intake frequency: a few times a week details: none while substance use type: does not use do you feel safe at home: Yes additional social history: Spouse: Vladimir History 2 Elective abortions Hx Para 1 Spontaneous abortions Hx # Term Pregnancies Ectopic pregnancies Hx # Pregnancies Multiple births # of living children 1 Past Pregnancies Del. Date Name GA/Weeks Outcome Route Bth Weight Infant Gen Labor Lgth Anesthesia Del Locatn Provider FOB Unknown 11/16/2011 [facility] live - full term 7# 8oz Female 9 hr epidural [place] Delivery Date: Last Updated by: Erna [place] BRAN MIXER, BRAN MIXER-C Hyperemesis, Pre E; Visit Details Expected Delivery Route/Plan Labor Preferences- CB/BF classes: [] labor support person: [] labor intervention preferences: [] pain management options preferred: [] cut cord/dad catch: [] : [] PP control planned: [] discussed possible routes of delivery and associated risks: [] special requests: [] Plans Covid status: declined Flu vaccine: decliined Tdap vaccine: declined Rhogam: na LARC form signed: [] movement and labor precautions reviewed. Problem list reviewed and updated with the most current plan of care details and appropriate orders placed. Relevant counseling for the gestational age provided. Continue routine care and follow up unless otherwise noted in visit notes/problem list details OB Flowsheet Initial Weight: Not Recorded Date -?-?-?-?-?-?-?-?-?-?-?-?- EGA Weight BP Urine Prot -?-?-?-?-?-?-?-?-?-?-?-?- Glucose FHR FuHt Pres Dilation -?-?-?-?-?-?-?-?-?-?-?-?- Effaced St Visit Note 04/07/22 -?-?-?-?-?-?-?-?-?-?-?-?- 9w 0d 193 lb 158/90 -?-?-?-?-?-?-?-?-?-?-?-?- 180 -?-?-?-?-?-?-?-?-?-?-?-?- SM- CRL 2.26cm c ons with LMP 05/03/22 -?-?-?-?-?-?-?-?-?-?-?-?- 12w 5d 192 lb 6 oz 133/87 Nega tive -?-?-?-?-?-?-?-?-?-?-?-?- Negative 155 -?-?-?-?-?-?-?-?-?-?-?-?- JV- no complaint s. pt declines genetic testnig. anatomy ultrasound ordered. 06/07/22 -?-?-?-?-?-?-?-?-?-?-?-?- 17w 5d 198 lb 8 oz 120/73 132/68 Negative -?-?-?-?-?-?-?-?-?-?-?-?- Negative 147 -?-?-?-?-?-?-?-?-?-?-?-?- JV- pt complains of RUQ pain and headaches. She states she is trying to sleep on her left side and take tylenol but the pain is persistent. she has a h/o Pre- e. ordering baseline labs with pro:cr will call with results. 06/28/22 -?-?-?-?-?-?-?-?-?-?-?-?- 20w 5d 203 lb 133/77 Negative -?-?-?-?-?-?-?-?-?-?--?-?- Negative 140 -?-?-?-?-?-?-?-?-?-?-?-?- SM- no vb lof go od fm no reuglar ctx 07/29/22 -?-?-?-?-?-?-?-?-?-?-?-?- 25w 1d 205 lb 8 oz 135/79 Nega tive -?-?-?-?-?-?-?-?-?-?-?-?- Negative 145 -?-?-?-?-?-?-?-?-?-?-?-?- JV- pt has type and screen in but no other new ob labs. she will do this at the gct visit. 08/19/22 -?-?-?-?-?-?-?-?-?-?-?-?- 28w 1d 203 lb 134/73 Negative -?-?-?-?-?-?-?-?-?-?-?-?- Negative 135 28 -?-?-?-?-?-?-?-?-?-?-?-?- SM- no vb lof go od fm no reuglar ctx 09/09/22 -?-?-?-?-?-?-?-?-?-?-?-?- 31w 1d 207 lb 136/88 Negative -?-?-?-?-?-?-?-?-?-?-?-?- Negative 150 31 -?-?-?-?-?-?-?-?-?-?-?-?- SM- no vb lof go od fm no reuglar ctx 09/28/22 -?-?-?-?-?-?-?-?-?-?-?-?- 33w 6d 210 lb 6 oz 132/84 Nega tive -?-?-?-?-?-?-?-?-?-?-?-?- Negative 154 34 0 -?-?-?-?-?-?-?-?-?-?-?-?- MH-Good FM. Has bad cough. Noted 4 episodes of pink with wiping after void. Exam with normal dc, cervix closed. Larc 10/07/22 -?-?-?-?-?-?-?-?-?-?-?-?- 35w 1d 206 lb 2 oz 157/79 Nega tive -?-?-?-?-?-?-?-?-?-?-?-?- Negative 155 35 -?-?-?-?-?-?-?-?-?-?-?-?- JV- no lof, vagi nal bleeding, dec fm. + fogging in the periphery of vision, + on off mild headaches, and states is only urinating once or twice a day. sending back to L&D for further monitoring. last 24 hr urine was 290 10/10/22 -?-?-?-?-?-?-?-?-?-?-?-?- 35w 4d 209 lb 137/91 Negative -?-?-?-?-?-?-?-?-?-?--?-?- Negative 150 -?-?-?-?-?-?-?-?-?-?-?-?- MH-NST only reac tive. Denies headache pressure like earache. No vision changes. Rev with SM:RTO 3 days. Home BP monitor. 10/13/22 -?-?-?-?-?-?-?-?-?-?-?-?- 36w 0d 204 lb 8 oz 130/85 Nega tive -?-?-?-?-?-?-?-?-?-?-?-?- Negative 150 1 -?-?-?-?-?-?-?-?--?-?-?-?- 20 -3 JV- reacti ve NST. 37 week IOL set up for gestational htn, 10/18/22 -?-?-?-?-?-?-?-?-?-?-?-?- 36w 5d 205 lb 2 oz 137/83 Nega tive -?-?-?-?-?-?-?-?-?-?-?-?- Negative 150 -?-?-?-?-?-?-?-?-?-?-?-?- -nonreassuring NST. Decel X 3 to 120 with movement. To US for BPP, LENCHO. Reviewed with SM NST FHR Rate Baby A Baseline: 140 Variability:: Moderate Accelerations:: 15 x 15 Decelerations:: None NST Reactive:: Yes FHR Category:: Category I Labs Labs Labs: Blood Type A POSITIVE Antibody Screen NEGATIVE Hct 37.2 % (37-47) Hgb 12.7 g/dL (12.0-15.0) Pap Smear Negative Obstetrics US Syphilis Total Ab Non-reactive Rubella IgG Antibody Reactive (Nonreactive) Hep Bs Antigen Non-Reactive (Nonreactive) Chlamydia DNA (DILAN) Negative (Negative) Neisseria gonorrhoeae DNA (DILAN) Negative (Negative) HIV 1&2 Antibody Non-Reactive (Nonreactive) Glucose 1 Hr 50 gm 132 mg/dL (70-140) Rhogam given: No Assessment & Plan (1) Supervision of other normal : COMMENT: DENNIS:11/10/22 boy PC:Lakisha. Sp:Vladimir (Rozina). [facility]. (2) : QUALIFIERS: Weeks of gestation: 36 weeks Qualified Code(s): Z3A.36 - 36 weeks gestation of COMMENT: nl anatomy,discussed genetic and carrier screen (3) Nausea/vomiting in : COMMENT: manpreet (4) Tobacco use: COMMENT: quit (5) History of gestational hypertension: COMMENT: with first , baseline CMP and urine prot/creat. Per previous records 2012 delivery-early acute chorionitis (6) Hypertension affecting in third trimester: COMMENT: exp management, reviewed precautions, plan delivery 37 weeks. plan weekly labs and weekly NSTs. (7) Positive GBS test: PLAN: Plan reassuring tracing for 132 minutes. ok to dc to home and return for IOL later this week. Charges/Coding Multi Select Codes Urinary/Genital Urinary/Genital CPT Codes: 15520-71 non-stress test Interp
== END 2022-10-18 13:00 | disposition home or self-care (01) ==
LOC: WPOUT 09:53 → WP 09:54
PROVIDERS: Referring Provider Obstetrics & Gynecology; Visit Provider Obstetrics & Gynecology
DX: O36.8330 Maternal care for abnormalities of the fetal heart rate or rhythm, third trimester, not applicable or unspecified (principal); O16.3 Unspecified maternal hypertension, third trimester; O99.820 Streptococcus B carrier state complicating pregnancy; O99.891 Other specified diseases and conditions complicating pregnancy; R11.2 Nausea with vomiting, unspecified; Z3A.37 37 weeks gestation of pregnancy; Z87.891 Personal history of nicotine dependence
CPT/HCPCS: 59025; 59050; 76819

== ENCOUNTER 2022-10-20 16:10 | Inpatient (IN) | payer OTHER, SELFPAY ==
[2022-10-20] VITALS (9 sets, daily range): BP systolic 138–159; BP diastolic 74–85; PULSE 84–245; TEMP 36.8–37.2; O2SAT 83–99; BMI 31.0
[2022-10-20 16:50] LABS: Absolute Neutrophil Count 7.8 X10^3/uL (2.0-7.7); Basophil# 0.03 X10^3/uL; Basophil% 0.3 % (0-1); Eosinophil# 0.04 X10^3/uL; Eosinophils% 0.4 % (0-5); Hematocrit 37.2 % (37-47); Hemoglobin 12.7 g/dL (12.0-15.0); Lymphocyte % 15.7 % (19-41); Mean Corp Hgb Conc 34.1 g/dL (32-36); Mean Corpuscular Hgb 30.4 pg (27.0-32.0); Mean Platelet Vol. 11.5 fl (6.2-12.0); Monocyte% 6.9 % (0-10); NRBC Flagged by Analyzer 0 % (0-5); Neutrophil # 7.81 X10^3/uL (2.7-7.7); Neutrophil % 76.4 % (47-70); Platelet Count 207 K/mm3 (150-450); RBC Distribution Width SD 45.7 fl (35.1-43.9); Red Blood Count 4.18 M/mm3 (4.2-5.4); White Blood Count 10.2 K/mm3 (4.4-11.0)
[2022-10-20] MEDS: 0.9% Saline Lock 10 ML Syringe IV (17:39)
[2022-10-20] MEDS: 0.9% Normal Saline Single 100 ML IV.SOLN. INTRA-UTER (17:39)
[2022-10-20] MEDS: Lactated Ringers 1,000 ML 50 ML IV (17:45)
[2022-10-20 18:41] LABS: ALB/GLOB Ratio 0.8 RATIO (0.9-2.4); AST(SGOT) 9 U/L (15-37); Alanine Aminotransfer ALT/SGPT 16 U/L (13-56); Albumin, Serum 3.3 g/dL (3.2-5.0); Alkaline Phosphatase 77 U/L (45-117); Anion Gap 10 (5-15); BUN 7 mg/dL (7-18); BUN/Creat Ratio 14.5 RATIO (10-20); Calcium,Total 9.9 mg/dL (8.5-10.1); Chloride 106 mmol/L (98-107); Creatinine, Serum 0.48 mg/dL (0.55-1.02); EST Glomerular Filtration Rate 160 mL/min (>60); Est Glom Filt Rate - Afr Amer 193 mL/min (>60); Estimated Creatinine Clearance 172.88 ml/min; Globulin 4.1 g/dL (2.2-4.2); Glucose 76 mg/dL (74-106); Potassium 3.2 mmol/L (3.5-5.1); Protein, Total 7.4 g/dL (6.4-8.2); Sodium Level 139 mmol/L (136-145)
[2022-10-20] MEDS: Penicillin G 3,000,000 Units 50 ML 100 UNITS IV (22:01)
[2022-10-20] MEDS: Mag Hydrox/Al Hydrox/Simeth 30 ML UDC PO (22:12)
[2022-10-20] MEDS: Ondansetron 4 MG/2 ML Vial IV (23:43)
[2022-10-21] VITALS (101 sets, daily range): BP systolic 100–188; BP diastolic 52–116; PULSE 28–231; RESP 16–18; TEMP 35.9–37.5; O2SAT 82–100
--- NOTE | 2022-10-21 00:35 | HP.PCM.OB_ITS ---
HPI - General General Date of Admission: 10/20/22 HPI Narrative JANETH BURGOS, is a 31 F who presents for induction of labor secondary to gestational hypertension with some intermittent headaches. Blood pressures normal to mildly elevated. Labs stable. Maternal Data Information DENNIS Calculator Estimated Delivery Date Method Current WG Current Estimate 11/10/22 LMP (Uncertain) 37w 1d PFSH PFS Medical History (Updated 10/21/22 @ 00:[address] Iveth Torres MD) History of gestational hypertension Positive GBS test Pre-eclampsia Home Medications prenat.vits,david,hea-qhoj-nvcgy 1 tab PO DAILY 03/23/22 [History Last Taken 10/19/22 22:30] calcium carbonate 200 mg calcium (500 mg) chewable tablet (Tums) 200 mg PO PRN PRN Indigestion 06/28/22 [History Last Taken 10/20/22 17:00] acetaminophen 500 mg tablet 1,000 mg PO Q6H PRN Pain 10/04/22 [History Last Taken 10/20/22 10:00] diphenhydramine HCl 25 mg capsule (Benadryl) 25 mg PO PRN PRN allergies 10/04/22 [History Last Taken 10/06/22 22:00] famotidine 20 mg tablet (Pepcid) 20 mg PO DAILY indigestion 10/04/22 [History Last Taken 10/19/22 22:30] diphenhydramine HCl 50 mg/30 mL oral liquid 50 mg PO QHS PRN Insomnia 10/14/22 [History Last Taken Unknown] Allergy/AdvReac Type Severity Reaction Status Date / Time No Known Allergies Allergy Verified 10/20/22 17:52 Family History Father Diabetes Mother Multiple sclerosis Brother SVT (supraventricular tachycardia) Grandmother Hypertension Grandfather Hypertension Heart disease Surgical History History of surgery Social History adopted: No household members: spouse number of children: 2 current occupational status: employed current occupation: [employer] pets and animals: Yes (avoid litter box) pets and animals: cat(s), dog(s) and farm animals Smoking Status: Former smoker how long ago did patient quit smokin cig per day, decreasing daily quit status: considering quitting alcohol intake: current alcohol intake frequency: a few times a week details: none while substance use type: does not use do you feel safe at home: Yes additional social history: Spouse: Vladimir History 2 Elective abortions Hx Para 1 Spontaneous abortions Hx # Term Pregnancies Ectopic pregnancies Hx # Pregnancies Multiple births # of living children 1 Past Pregnancies Del. Date Name GA/Weeks Outcome Route Bth Weight Infant Gen Labor Lgth Anesthesia Del Locatn Provider FOB Unknown 11/16/2011 [facility] live - full term 7# 8oz Female 9 hr epidural [place] Delivery Date: Last Updated by: Erna [place] CHARGING CRANE OPERATOR, CHARGING CRANE OPERATORTeresaC Hyperemesis, Pre E; Visit Details Expected Delivery Route/Plan Labor Preferences- CB/BF classes: [] labor support person: [] labor intervention preferences: [] pain management options preferred: [] cut cord/dad catch: [] : [] PP control planned: [] discussed possible routes of delivery and associated risks: [] special requests: [] Plans Covid status: declined Flu vaccine: decliined Tdap vaccine: declined Rhogam: na LARC form signed: [] movement and labor precautions reviewed. Problem list reviewed and updated with the most current plan of care details and appropriate orders placed. Relevant counseling for the gestational age provided. Continue routine care and follow up unless otherwise noted in visit notes/problem list details OB Flowsheet Initial Weight: Not Recorded Date -?-?-?-?-?-?-?-?-?-?-?-?- EGA Weight BP Urine Prot -?-?-?-?-?-?-?-?-?-?-?-?- Glucose FHR FuHt Pres Dilation -?-?-?-?-?-?-?-?-?-?-?-?- Effaced St Visit Note 04/07/22 -?-?-?-?-?-?-?-?-?-?-?-?- 9w 0d 87.543 kg 158/90 -?-?-?-?-?-?-?-?-?-?-?-?- 180 -?-?-?-?-?-?-?-?-?-?-?-?- SM- CRL 2.26cm c ons with LMP 05/03/22 -?-?-?-?-?-?-?-?-?-?-?-?- 12w 5d 87.26 kg 133/87 Negativ e -?-?-?-?-?-?-?-?-?-?-?-?- Negative 155 -?-?-?-?-?-?-?-?-?-?-?-?- JV- no complaint s. pt declines genetic testnig. anatomy ultrasound ordered. 06/07/22 -?-?-?-?-?-?-?-?-?-?-?-?- 17w 5d 90.038 kg 120/73 132/68 Negative -?-?-?-?-?-?-?-?-?-?-?-?- Negative 147 -?-?-?-?-?-?-?-?-?-?-?-?- JV- pt complains of RUQ pain and headaches. She states she is trying to sleep on her left side and take tylenol but the pain is persistent. she has a h/o Pre- e. ordering baseline labs with pro:cr will call with results. 06/28/22 -?-?-?-?-?-?-?-?-?-?-?-?- 20w 5d 92.079 kg 133/77 Negati ve -?-?-?-?-?-?-?-?-?-?-?-?- Negative 140 -?-?-?-?-?-?-?-?-?-?-?-?- SM- no vb lof go od fm no reuglar ctx 07/29/22 -?-?-?-?-?-?-?-?-?-?-?-?- 25w 1d 93.213 kg 135/79 Negati ve -?-?-?-?-?-?-?-?-?-?-?-?- Negative 145 -?-?-?-?-?-?-?-?-?-?-?-?- JV- pt has type and screen in but no other new ob labs. she will do this at the gct visit. 08/19/22 -?-?-?-?-?-?-?-?-?-?-?-?- 28w 1d 92.079 kg 134/73 Negati ve -?-?-?-?-?-?-?-?-?-?-?-?- Negative 135 28 -?-?-?-?-?-?-?-?-?-?-?-?- SM- no vb lof go od fm no reuglar ctx 09/09/22 -?-?-?-?-?-?-?-?-?-?-?-?- 31w 1d 93.894 kg 136/88 Negati ve -?-?-?-?-?-?-?-?-?-?-?-?- Negative 150 31 -?-?-?-?-?-?-?-?-?-?-?-?- SM- no vb lof go od fm no reuglar ctx 09/28/22 -?-?-?-?-?-?-?-?-?-?-?-?- 33w 6d 95.424 kg 132/84 Negati ve -?-?-?-?-?-?-?-?-?-?-?-?- Negative 154 34 0 -?-?-?-?-?-?-?-?-?-?-?-?- -Good FM. Has bad cough. Noted 4 episodes of pink with wiping after void. Exam with normal dc, cervix closed. Larc 10/07/22 -?-?-?-?-?-?-?-?-?-?-?-?- 35w 1d 93.497 kg 157/79 Negati ve -?-?-?-?-?-?-?-?-?-?-?-?- Negative 155 35 -?-?-?-?-?-?-?-?-?-?-?-?- JV- no lof, vagi nal bleeding, dec fm. + fogging in the periphery of vision, + on off mild headaches, and states is only urinating once or twice a day. sending back to L&D for further monitoring. last 24 hr urine was 290 10/10/22 -?-?-?-?-?-?-?-?-?-?-?-?- 35w 4d 94.801 kg 137/91 Negati ve -?-?-?-?-?-?-?-?-?-?-?-?- Negative 150 -?-?-?-?-?-?-?-?-?-?-?-?- MH-NST only reac tive. Denies headache pressure like earache. No vision changes. Rev with SM:RTO 3 days. Home BP monitor. 10/13/22 -?-?-?-?-?-?-?-?-?-?-?-?- 36w 0d 92.76 kg 130/85 Negativ e -?-?-?-?-?-?-?-?-?-?-?-?- Negative 150 1 -?-?-?-?-?-?-?-?-?-?-?-?- 20 -3 JV- reacti ve NST. 37 week IOL set up for gestational htn, 10/18/22 -?-?-?-?-?-?--?-?-?-?-?-?- 36w 5d 93.043 kg 137/83 Negati ve -?-?-?-?-?-?-?-?-?-?-?-?- Negative 150 -?-?-?-?-?-?-?-?-?-?-?-?- MH-nonreassuring NST. Decel X 3 to 120 with movement. To US for BPP, LENCHO. Reviewed with SM 10/20/22 -?-?-?-?-?-?-?-?-?-?-?-?- 37w 0d 92.533 kg 159/82 144/85 148/82 146/83 138/83 139/78 140/74 141/87 -?-?-?-?-?-?-?-?-?-?-?-?- -?-?-?-?-?-?-?-?-?-?-?-?- NST FHR Rate Baby A Baseline: 130 Variability:: Moderate Accelerations:: 15 x 15 Decelerations:: None NST Reactive:: Yes FHR Category:: Category I Uterine Activity:: irregular ROS Constitutional Constitutional: Reports systems reviewed and no addt'l complaints, except as documented Eyes Eyes: Denies change in vision ENT HEENT: Reports systems reviewed and no addt'l complaints, except as documented; Denies headache(s) Cardiovascular Cardiovascular: Reports systems reviewed and no addt'l complaints, except as documented; Denies chest pain or dyspnea Respiratory/Chest Respiratory/Chest: Reports systems reviewed and no addt'l complaints, except as documented Gastrointestinal Gastrointestinal: Reports systems reviewed and no addt'l complaints, except as documented; Denies abdominal pain Genitourinary Genitourinary: Reports systems reviewed and no addt'l complaints, except as documented, contractions Details: present (irregular) and movement Details: present; Denies dysuria or genital lesions Musculoskeletal Musculoskeletal: Reports systems reviewed and no addt'l complaints, except as documented Neurologic Neurologic: Reports systems reviewed and no addt'l complaints, except as docume nted Endocrine Endocrinology: Reports systems reviewed and no addt'l complaints, except as documented Vital Signs Vital Signs Vital Signs: 10/20/22 16:21 10/20/22 16:21 10/20/22 17:00 Temperature Temperature Source Pulse Rate 92 Blood Pressure 159/82 H 144/85 H BP Systolic 159 144 BP Diastolic 82 85 Pulse Ox 10/20/22 17:00 10/20/22 17:00 10/20/22 17:00 Temperature Temperature Source Temporal Pulse Rate 84 Blood Pressure BP Systolic BP Diastolic Pulse Ox 99 10/20/22 17:00 10/20/22 19:40 10/20/22 19:40 Temperature 99.0 F Temperature Source Pulse Rate 88 Blood Pressure 148/82 H BP Systolic 148 BP Diastolic 82 Pulse Ox 10/20/22 19:42 10/20/22 19:42 10/20/22 20:44 Temperature Temperature Source Pulse Rate 99 Blood Pressure 146/83 H BP Systolic 146 BP Diastolic 83 Pulse Ox 85 10/20/22 20:44 10/20/22 20:44 10/20/22 20:44 Temperature Temperature Source Tympanic Pulse Rate 88 Blood Pressure BP Systolic BP Diastolic Pulse Ox 97 10/20/22 20:44 10/20/22 20:54 10/20/22 20:54 Temperature 98.3 F Temperature Source Pulse Rate 245 H Blood Pressure BP Systolic BP Diastolic Pulse Ox 83 10/20/22 21:47 10/20/22 21:47 10/20/22 22:39 Temperature Temperature Source Pulse Rate 92 Blood Pressure 138/83 H 139/78 H BP Systolic 138 139 BP Diastolic 83 78 Pulse Ox 10/20/22 22:39 10/20/22 22:39 10/20/22 22:39 Temperature 98.6 F Temperature Source Tympanic Pulse Rate 94 Blood Pressure BP Systolic BP Diastolic Pulse Ox 10/20/22 23:44 10/20/22 23:44 10/20/22 23:44 Temperature 98.4 F Temperature Source Pulse Rate 88 Blood Pressure 140/74 H BP Systolic 140 BP Diastolic 74 Pulse Ox 10/21/22 00:24 10/21/22 00:24 10/21/22 00:23 Temperature Temperature Source Temporal Pulse Rate 88 Blood Pressure 141/87 H BP Systolic 141 BP Diastolic 87 Pulse Ox 10/21/22 00:23 10/21/22 00:26 10/21/22 00:26 Temperature 97.8 F Temperature Source Pulse Rate 98 Blood Pressure BP Systolic BP Diastolic Pulse Ox 97 Weight Weight: 92.533 kg Body Mass Index (BMI) 31.0 Physical Exam Const alert, oriented x3, no apparent distress and healthy appearing HEENT normocephalic and moist oral mucous membranes Head and Scalp: atraumatic Neck full ROM, no lymphadenopathy, supple and thyroid normal General: trachea midline Lymph Lymphatic: no lymphadenopathy noted Chest inspection of chest normal Resp normal respiratory effort Cardio regular rate GI normal to inspection, nondistended, normoactive bowel sounds, soft to palpation and non-tender Inspection: gravid external exam normal Manual OB Exam: estimated gestational size appropriate, presentation cephalic, dilated, effaced and station Extremity normal to inspection General Extremity: Negative for edema Skin no rashes or lesions noted Neuro no focal motor deficits and deep tendon reflexes 2+ bilaterally Motor Exam: strength 5/5 throughout and clonus absent Psych mental status grossly normal Labs Labs Labs: Blood Type A POSITIVE Antibody Screen NEGATIVE Hct 37.2 % (37-47) Hgb 12.7 g/dL (12.0-15.0) Pap Smear Negative Obstetrics US Syphilis Total Ab Non-reactive Rubella IgG Antibody Reactive (Nonreactive) Hep Bs Antigen Non-Reactive (Nonreactive) Chlamydia DNA (DILAN) Negative (Negative) Neisseria gonorrhoeae DNA (DILAN) Negative (Negative) HIV 1&2 Antibody Non-Reactive (Nonreactive) Glucose 1 Hr 50 gm 132 mg/dL (70-140) Assessment & Plan (1) Supervision of other normal : COMMENT: DENNIS:11/10/22 boy PC:Lakisha. Sp:Vladimir (Rozina). [facility] [facility]. (2) : QUALIFIERS: Weeks of gestation: 36 weeks Qualified Code(s): Z3A.36 - 36 weeks gestation of COMMENT: nl anatomy,discussed genetic and carrier screen (3) Nausea/vomiting in : COMMENT: manpreet (4) Tobacco use: COMMENT: quit (5) History of gestational hypertension: COMMENT: with first , baseline CMP and urine prot/creat. Per previous records 2012 delivery-early acute chorionitis (6) Hypertension affecting in third trimester: COMMENT: exp management, reviewed precautions, plan delivery 37 weeks. plan weekly labs and weekly NSTs. (7) Positive GBS test: (8) Encounter for induction of labor: PLAN: Plan Patient presents IOL, plan management for with Salazar bulb induction. Plan for AROM afterwards and Pitocin if needed for induction. Pain management: Open to epidural but prefers minimal intervention. GBS positive give penicillin. Management of any complications: Gestational hypertension monitor but does not meet criteria for magnesium sulfate at this time I have reviewed the [facility] and made any clinically relevant updates.
--- NOTE | 2022-10-21 00:38 | PCM.PN.BLA ---
Progress Note fb in for a few hours then expelled, 4 cm, now 5 current tracing: FHT: 130 Moderate variability reactive no decelerations category I tracing [place]: q2-4 Contractions reviewed tracing abnormalities since last note: no significant A/P: AROM pink-tinged fluid. Discussed that if no cervical change within 4 to 6 hours we will start Pitocin otherwise continue labor position changes, open to hydrotherapy. Expectant management
[2022-10-21] MEDS: Penicillin G 3,000,000 Units 50 ML 100 UNITS IV ×2 (01:57→06:22)
[2022-10-21] MEDS: LACTATED RINGERS 500 ML 999 ML IV ×3 (01:58→05:32)
[2022-10-21] MEDS: Mag Hydrox/Al Hydrox/Simeth 30 ML UDC PO (02:17)
[2022-10-21] MEDS: Lactated Ringers 1,000 ML 200 ML IV ×2 (03:07→09:11)
[2022-10-21] MEDS: Ondansetron 4 MG/2 ML Vial IV ×2 (04:02→09:03)
[2022-10-21] MEDS: fentaNYL-bupivacaine (epidural) 100 ML BAG EPIDURAL (05:38)
[2022-10-21] MEDS: proCHLORPERazine 10 MG/2 ML Vial IV (06:17)
[2022-10-21] MEDS: Oxytocin 15 Units/NS 250ml 15 UNITS/250 ML IV.SOLN 2 UNITS IV (06:29)
[2022-10-21] MEDS: 0.9% Saline Lock 10 ML Syringe IV (09:03)
--- NOTE | 2022-10-21 10:35 | EX.PCM.OBRPT ---
Assessment & Plan (1) Encounter for induction of labor: COMMENT: iol for GHTN (2) (spontaneous vaginal delivery): COMMENT: IOL for ghtn. . LC. boy:Terell (3) Hypertension affecting in third trimester: COMMENT: exp management, reviewed precautions, plan delivery 37 weeks. plan weekly labs and weekly NSTs. Maternal Data Information DENNIS Calculator Estimated Delivery Date Method Current WG Current Estimate 11/10/22 LMP (Uncertain) 37w 1d Vaginal Delivery Maternal Presentation Maternal Presentation: Medically Indicated Induction Type of Induction: Pitocin and Salazar Bulb Medical Reason for Induction: Gestational Hypertension Operative Information Date of Procedure: 10/21/22 Pre-Operative Diagnosis: Post-Operative Diagnosis: Surgery / Procedure Performed: Spontaneous Vaginal Delivery Estimated Blood Loss: 150 Time of Delivery: 10:16 Findings Description of Procedure: Patient began pushing and delivered the head in the ROP presentation. The head was delivered atraumatically. The anterior and posterior shoulders delivered without complication followed by the rest of the and the infant was placed on the maternal abdomen. Delayed cord clamping was employed for approximately 120 seconds. Cord was clamped and cut and gentle traction was applied to the cord and the placenta delivered spontaneously immediately following it was noted to be intact with three-vessel cord. The perineum and vagina were inspected and noted to have no laceration. EBL was 150. Patient and infant tolerated delivery well. Presentation: Vertex Amniotic Membrane Rupture Type: Spontaneous Amniotic Fluid Description: Clear Placental Delivery Description: Spontaneous Placenta Disposition: [facility] Cord Vessel Description: 3 Vessels Cord Entanglement: None (1 minute): 8 (5 minute): 9 Delayed Cord Clamping: Yes Post Vaginal Delivery Medications Given After Delivery: IV Pitocin Episiotomy Description: None Laceration: None Complication Complications: None Procedures Urinary/Genital [id number]: [id number] Vaginal Delivery global pkg (CNM delivery)
[2022-10-21] MEDS: Acetaminophen 500 MG Tablet 1000 MG PO (12:05)
[2022-10-21] MEDS: Naproxen 500 MG Tablet PO (14:44)
[2022-10-21] MEDS: Senna/Docusate Sodium 1 Tablet PO (15:25)
--- NOTE | 2022-10-21 17:48 | DCINST_ITS ---
Discharge Instructions Diet Discharge Diet: No restrictions Activity Discharge Activity: May Not Drive and May Shower May resume sexual activity in: 6 weeks Weight Bearing Status: Full weight bearing Dressing / Incision Call your doctor if your incision/area has: Sudden Increased Bleeding, Increased Pain/ Swelling and Foul Smelling Discharge Call your doctor if you observe: Fever of 101 or Higher, Numbness or Tingling, Change in Color, Inability to urinate, Inability to have a bowel movement, Using more than 1 pad per hour, Shortness of breath, Dizziness, Fainting spells, Chest pain, Calf discomfort and Uncontrolled pain Follow Up Care Please Follow Up With: Martita Mckeon CNM When: 6 weeks , please call office to make an appointment. Congratulations on the of your baby boy RASHEED!!! Test Results: Test results from this visit will be discussed in further detail at your follow- up appointment, if applicable. Discharge Plan Admission Admit Date/Time: 10/20/22 16:10 Attending Provider: Martita Mckeon Primary Care Provider: Care PhysicianRosetta Primary Discharge Orders/Prescriptions Prescriptions: No Action prenat.vits,david,[id number] Tablet 1 tab PO DAILY calcium carbonate [Tums] 200 mg calcium (500 mg) tablet,chewable 200 mg PO PRN PRN (Reason: Indigestion) acetaminophen 500 mg Tablet 1,000 mg PO Q6H PRN (Reason: Pain) famotidine [Pepcid] 20 mg Tablet 20 mg PO DAILY diphenhydramine HCl [Benadryl] 25 mg Capsule 25 mg PO PRN PRN (Reason: allergies) Unisom (diphenhydramine) 50 mg/30 mL Liquid 50 mg PO QHS PRN (Reason: Insomnia) Referrals / Follow Up: Care Physician,No Primary [Primary Care Provider] -
[2022-10-22] VITALS (8 sets, daily range): BP systolic 130–138; BP diastolic 70–78; PULSE 77–97; RESP 14–16; TEMP 36.4–36.8; O2SAT 95–98
[2022-10-22] MEDS: Naproxen 500 MG Tablet PO ×2 (08:19→15:42)
--- NOTE | 2022-10-22 09:12 | PCM.PN.OB ---
Subjective Subjective Patient doing well without complaints. Tolerating PO. Ambulating and voiding without difficulty. Feeding well. Denies chest pain, shortness of breath, calf pain/swelling, fevers, chills, lightheadedness. Objective Data Objective Data Vital Signs: Vital Signs Temp Pulse Resp BP Pulse Ox O2 Del Method 98.1 F 82 14 130/76 H 98 Room Air 10/22/22 08:22 10/22/22 08:22 10/22/22 08:22 10/22/22 08:22 10/22/22 08:22 10/22/22 08:22 Oxygen Delivery Method Room Air Weight: 204 lb Body Mass Index (BMI) 31.0 Intake & Output: Intake and Output for Last 24 Hours 10/20/22 10/21/22 10/22/22 23:59 23:59 23:59 Intake Total 894.17 / 894.17 3252.07 / 3252.07 Output Total 3158 / 3158 Balance 894.17 / 894.17 94.07 / 94.07 Lab / Micro Data Result Diagrams: 10/20/22 16:30 10/20/22 16:34 Physical Exam Const alert, oriented x3 and no apparent distress HEENT normocephalic Lymph Lymphatic: no lymphadenopathy noted Resp normal respiratory effort, normal air movement and no retractions Cardio regular rate and regular rhythm GI GI Narrative: fundus firm, less than u. normal lochia rubra. no clots External Female Exam: normal appearance of the urethra Extremity normal to inspection and full ROM Skin no rashes or lesions noted Psych mental status grossly normal Assessment & Plan (1) (spontaneous vaginal delivery): COMMENT: IOL for ghtn. . LC. boy:Terell (2) Hypertension affecting in third trimester: COMMENT: VSS, denies headaches/visual changes. PEC labs normal PLAN: Plan s/p PPD #1 1. routine post delivery care 2. bottle feeding 3. rh positive 4. rubella immune 5.HTN stable. 6. d/c home today if stable
[2022-10-22] MEDS: Senna/Docusate Sodium 1 Tablet PO (14:21)
[2022-10-23 01:21] VITALS: BP 136/80; PULSE 77; PULSE 88; RESP 16; TEMP 36.6; O2SAT 98
[2022-10-23 01:22] VITALS: PULSE 78; O2SAT 98
[2022-10-23] MEDS: Naproxen 500 MG Tablet PO (01:42)
--- NOTE | 2022-10-23 08:15 | NURSING ---
report given to Christopher ALVARADO, that RN will assume care at this time
[2022-10-23 09:00] VITALS: BP 136/62; PULSE 90; RESP 15; TEMP 36.6; O2SAT 97
[2022-10-23 09:01] VITALS: BP 136/62; PULSE 77
--- NOTE | 2022-10-23 09:29 | PN.OBGYN_ITS ---
Subjective Subjective Patient doing well without complaints. Tolerating PO. Ambulating and voiding without difficulty. bottle feeding, breast sore. Denies chest pain, shortness of breath, calf pain/swelling, fevers, chills, lightheadedness. Objective Data Objective Data Vital Signs: Vital Signs Temp Pulse Resp BP Pulse Ox O2 Del Method 97.9 F 77 15 136/62 H 97 Room Air 10/23/22 09:00 10/23/22 09:01 10/23/22 09:00 10/23/22 09:01 10/23/22 09:00 10/23/22 09:00 Oxygen Delivery Method Room Air Weight: 204 lb Body Mass Index (BMI) 31.0 Intake & Output: Intake and Output for Last 24 Hours 10/21/22 10/22/22 10/23/22 23:59 23:59 23:59 Intake Total 3252.07 / 3252.07 Output Total 3158 / 3158 Balance 94.07 / 94.07 Lab / Micro Data Attestation: I reviewed the patient's lab results. Result Diagrams: 10/20/22 16:30 10/20/22 16:34 ROS Constitutional Constitutional: Reports systems reviewed and no addt'l complaints, except as documented Eyes Eyes: Denies change in vision ENT HEENT: Reports systems reviewed and no addt'l complaints, except as documented; Denies headache(s) Cardiovascular Cardiovascular: Reports systems reviewed and no addt'l complaints, except as documented; Denies chest pain or dyspnea Respiratory/Chest Respiratory/Chest: Reports systems reviewed and no addt'l complaints, except as documented Gastrointestinal Gastrointestinal: Reports systems reviewed and no addt'l complaints, except as documented; Denies abdominal pain Genitourinary Genitourinary: Reports systems reviewed and no addt'l complaints, except as documented, contractions Details: present (irregular) and movement Details: present; Denies dysuria or genital lesions Musculoskeletal Musculoskeletal: Reports systems reviewed and no addt'l complaints, except as documented Neurologic Neurologic: Reports systems reviewed and no addt'l complaints, except as documented Endocrine Endocrinology: Reports systems reviewed and no addt'l complaints, except as docu mented Physical Exam Const alert, oriented x3 and no apparent distress HEENT normocephalic Lymph Lymphatic: no lymphadenopathy noted Resp normal respiratory effort, normal air movement and no retractions Cardio regular rate and regular rhythm GI GI Narrative: fundus firm, less than u. normal lochia rubra. no clots External Female Exam: normal appearance of the urethra Extremity normal to inspection and full ROM Skin no rashes or lesions noted Psych mental status grossly normal Assessment & Plan (1) (spontaneous vaginal delivery): COMMENT: IOL for ghtn. . LC. boy:Terell (2) Hypertension affecting in third trimester: COMMENT: VSS, denies headaches/visual changes. PEC labs normal PLAN: Plan s/p PPD # 2 1. routine post delivery care 2. breast feeding- support given 3. rh positive 4. rubella immune 5. d/c home today, f/u in office for BP check in 2 weeks with routine 6 week PP visit.
== END 2022-10-23 09:55 | disposition home or self-care (01) | DRG 807 ==
PROVIDERS: Obstetrics & Gynecology; Admitting Provider Registered Nurse; Visit Provider Registered Nurse
DX: O13.4 Gestational [pregnancy-induced] hypertension without significant proteinuria, complicating childbirth (principal); Z37.0 Single live birth; O99.824 Streptococcus B carrier state complicating childbirth; R11.2 Nausea with vomiting, unspecified; Z3A.37 37 weeks gestation of pregnancy; Z87.891 Personal history of nicotine dependence
CPT/HCPCS: 59025; 59050; 80053; 85025; 86850; 86900; 86901; 99221; J7120; A4216; G0378; J2405